=== PATIENT | female | born 1990 | race African-American/Black ===

== ENCOUNTER 2022-08-09 23:54 | Inpatient (IN) | payer SELFPAY ==
--- OUTSIDE RECORDS SUMMARY | 2022-08-10 | XMS REPORT | Continuity of Care Document ---
:1990 Author Organization [facility] t Address [address] [place] [address] Care Team Providers Name Role Phone BRENTON Attending Clinician Unavailable G_Femi Attending Clinician Unavailable BRENTON Admitting Clinician Unavailable Lula Admitting Clinician Unavailable Payers Payer Name Policy Type Policy Number Effective Date Expiration Date [facility] [id number] 2019 CHOICE (MEDICAID 00:00:00 REPLACEMENT - O) Problems Condition Condition Condition Status Onset Resolution Last Treating Co mments Source Name Details Category Date Date Treatment Clinician Date Essential Essential Problem Active [facility] hypertensi Hypertensi 9-05 da on on 00:00: Medical 00 Group Pre-eclamp Pre-eclamp Problem Active [facility] jarred jarred 9-05 da 00:00: Medical 00 Group Problem Active 2018- M [facility] depression Depression 9-05 da 00:00: Medical 00 Group Pre-eclamp Pre-eclamp Problem Active 2018- M [facility] jarred or jarred or 8-12 da eclampsia Eclampsia 00:00: Medi safia with with 00 Group pre-existi Pre-existi ng ng hypertensi Hypertensi on - not on - Not delivered Delivered Uterine Uterine Problem Active [facility] scar from Scar from 5-24 da previous Previous 00:00: Medica l surgery in Surgery in 00 Gr oup , , childbirth Childbirth and the and the puerperium Puerperium with with problem Problem Chronic Chronic Problem Active [facility] hypertensi Hypertensi 02-10 da on on 00:00: Medical complicati Complicati 00 Gr oup ng AND/OR ng AND/OR reason for Reason for care Care during During History of History of Problem Active [facility] stillbirth Stillbirth 02-09 00:00: Medical 00 Group Late entry Late Entry Problem Active M [facility] into into 02-09 da 00:00: Medica l care Care 00 Group History of History of Problem Active M [facility] severe Severe da pre-eclamp Pre-eclamp Me dical jarred jarred Group Persistent Persistent Problem Active M [facility] proteinuri Proteinuri da a [facility] Allergies, Adverse Reactions, Alerts This patient has no known allergies or adverse reactions. Social History Smoking Status Start Date Stop Date Source Never Smoker [facility] Medications Ordered Filled Start Stop Current Ordering Indication Dosage Frequency Signature Comments Components Source Medication Medication Date Date Medication? Clinician (SIG) Name Name acetaminoph acetaminoph No acetaminop [facility] en 300 en 300 hen 300 da mg-codeine mg-codeine mg-codeine Medical 30 mg 30 mg 30 mg Group tablet 1-2 tablet 1-2 tablet 1-2 p.o. q 6 p.o. q 6 p.o. q 6 hrs PRN hrs PRN hrs PRN pain pain pain Aspirin Low Aspirin Low No 1 Q1D Aspirin [facility] Dose 81 mg Dose 81 mg Low Dose da tablet,maryann tablet,maryann 81 mg Medical yed release yed release tablet,del Group Take 1 Take 1 ayed tablet tablet release every day every day Take 1 by oral by oral tablet route. route. every day by oral route. citalopram citalopram No 1 Q1D citalopram [facility] 20 mg 20 mg 20 mg da tablet Take tablet Take tablet Medical 1 tablet 1 tablet Take 1 Group every day every day tablet by oral by oral every day route. route. by oral route. clonidine clonidine No 1 TID clonidine [facility] HCl 0.2 mg HCl 0.2 mg HCl 0.2 mg da tablet Take tablet Take tablet Medical 1 tablet 3 1 tablet 3 Take 1 G roup times a day times a day tablet 3 by oral by oral times a route. route. day by oral route. ferrous ferrous No 1 Q1D ferrous [facility] gluconate gluconate gluconate da 240 mg (27 240 mg (27 240 mg (27 Medical mg iron) mg iron) mg iron) Barbara up tablet Take tablet Take tablet 1 tablet 1 tablet Take 1 every day every day tablet by oral by oral every day route. route. by oral route. Fish Oil Fish Oil No 1capsul Q1D Fish Oil [facility] 1,000 mg 1,000 mg e(s) 1,000 mg da (120 mg-180 (120 mg-180 (120 M edical mg) capsule mg) capsule mg-180 mg) Group Take 1 Take 1 capsule capsule capsule Take 1 every day every day capsule by oral by oral every day route. route. by oral route. hydrochloro hydrochloro No 1 Q1D hydrochlor [facility] thiazide 25 thiazide 25 othiazide da mg tablet mg tablet 25 mg Medi safia Take 1 Take 1 tablet Group tablet tablet Take 1 every day every day tablet by oral by oral every day route. route. by oral route. ibuprofen ibuprofen No ibuprofen [facility] 800 mg 800 mg 800 mg da tablet tablet tablet Medical Group nifedipine nifedipine No nifedipine [facility] ER 60 mg ER 60 mg ER 60 mg da tablet,exte tablet,exte tablet,ext Medical nded nded ended Group release 24 release 24 release 24 hr Take 1 hr Take 1 hr Take 1 tablet tablet tablet every day every day every day by oral by oral by oral route. route. route. nifedipine nifedipine No nifedipine [facility] ER 90 mg ER 90 mg ER 90 mg da tablet,exte tablet,exte tablet,ext Medical nded nded ended Group release 24 release 24 release 24 hr Take 1 hr Take 1 hr Take 1 tablet tablet tablet every day every day every day by oral by oral by oral route. route. route. No [facility] Vitamin Vitamin Vitamin da Medical Group Vitafol-One Vitafol-One No Vitafol-On [facility] 29 mg 29 mg e 29 mg da iron-1 iron-1 iron-1 Medical mg-200 mg mg-200 mg mg-200 mg Group capsule capsule capsule Take 1 Take 1 Take 1 capsule capsule capsule every day every day every day by oral by oral by oral route at route at route at bedtime. bedtime. bedtime. Vital Signs Vital Name Observation Time Observation Value Comments Source BP Diastolic 2019-05-25 00:00:00 132 mm[Hg] [facility] Height 2019-05-25 00:00:00 61 [in_i] [facility] BMI (Body Mass 2019-05-25 00:00:00 29.6 kg/m2 [facility] Medical Index) Group BP Systolic 2019-05-25 00:00:00 196 mm[Hg] [facility] Body Weight 2019-05-25 00:00:00 156.4 [lb_av] [facility] BP Diastolic 2019-05-04 00:00:00 114 mm[Hg] [facility] Height 2019-05-04 00:00:00 61 [in_i] [facility] BMI (Body Mass 2019-05-04 00:00:00 31.9 kg/m2 [facility] Medical Index) Group BP Systolic 2019-05-04 00:00:00 163 mm[Hg] [facility] Body Weight 2019-05-04 00:00:00 168.7 [lb_av] [facility] BP Diastolic 2019-05-01 00:00:00 102 mm[Hg] [facility] Height 2019-05-01 00:00:00 61 [in_i] [facility] BMI (Body Mass 2019-05-01 00:00:00 32.5 kg/m2 [facility] Medical Index) Group BP Systolic 2019-05-01 00:00:00 155 mm[Hg] [facility] Body Weight 2019-05-01 00:00:00 172.1 [lb_av] [facility] BP Diastolic 2019-04-28 00:00:00 74 mm[Hg] [facility] Height 2019-04-28 00:00:00 61 [in_i] [facility] BP Systolic 2019-04-28 00:00:00 124 mm[Hg] [facility] BP Diastolic 2019-04-24 00:00:00 97 mm[Hg] [facility] Height 2019-04-24 00:00:00 61 [in_i] [facility] BMI (Body Mass 2019-04-24 00:00:00 32.1 kg/m2 [facility] Medical Index) Group BP Systolic 2019-04-24 00:00:00 139 mm[Hg] [facility] Body Weight 2019-04-24 00:00:00 170.1 [lb_av] [facility] BP Diastolic 2019-04-17 00:00:00 109 mm[Hg] [facility] Height 2019-04-17 00:00:00 61 [in_i] [facility] BMI (Body Mass 2019-04-17 00:00:00 31.4 kg/m2 [facility] stri[facility] apprent[facility] Medical Index) Group BP Systolic 2019-04-17 00:00:00 157 mm[Hg] [facility] Body Weight 2019-04-17 00:00:00 166.3 [lb_av] [facility] BP Diastolic 2019-04-10 00:00:00 95 mm[Hg] [facility] Height 2019-04-10 00:00:00 61 [in_i] [facility] BMI (Body Mass 2019-04-10 00:00:00 31[facility]4 [facility] BP Systolic 2019-04-10 00:00:00 151 mm[Hg] [facility] Body Weight 2019-04-10 00:00:00 166.3 [lb_av] [facility] BP Diastolic 2019-04-03 00:00:00 87 mm[Hg] [facility] Height 2019-04-03 00:00:00 61 [in_i] [facility] BMI (Body Mass 2019-04-03 00:00:00 31.7 kg/m2 [facility] apprent[facility] Medical Index) Group BP Systolic 2019-04-03 00:00:00 123 mm[Hg] [facility] Body Weight 2019-04-03 00:00:00 168 [lb_av] [facility] BP Diastolic 2019-03-22 00:00:00 95 mm[Hg] [facility] Height 2019-03-22 00:00:00 61 [in_i] [facility] BMI (Body Mass 2019-03-22 00:00:00 31[facility]4 [facility] BP Systolic 2019-03-22 00:00:00 149 mm[Hg] [facility] Body Weight 2019-03-22 00:00:00 166.2 [lb_av] [facility] BP Diastolic 2019-03-17 00:00:00 90 mm[Hg] [facility] Height 2019-03-17 00:00:00 61 [in_i] [facility] BMI (Body Mass 2019-03-17 00:00:00 31.2 [facility] BP Systolic 2019-03-17 00:00:00 148 mm[Hg] [facility] Body Weight 2019-03-17 00:00:00 165 [lb_av] [facility] BP Diastolic 2019-02-24 00:00:00 99 mm[Hg] [facility] Height 2019-02-24 00:00:00 61 [in_i] [facility] BMI (Body Mass 2019-02-24 00:00:00 30.3 kg/m2 [facility] stri[facility] apprentice Medical Index) Group BP Systolic 2019-02-24 00:00:00 153 mm[Hg] [facility] Body Weight 2019-02-24 00:00:00 160.2 [lb_av] [facility] BP Diastolic 2019-02-10 00:00:00 109 mm[Hg] [facility] Height 2019-02-10 00:00:00 61 [in_i] [facility] BMI (Body Mass 2019-02-10 00:00:00 30.4 [facility]m2 [facility] Group BP Systolic 2019-02-10 00:00:00 146 mm[Hg] [facility] Body Weight 2019-02-10 00:00:00 161 [lb_av] [facility] BP Diastolic 2019-02-09 00:00:00 102 mm[Hg] [facility] BP Systolic 2019-02-09 00:00:00 158 mm[Hg] [facility] Body Weight 2019-02-09 00:00:00 158 [lb_av] [facility] Procedures Procedure Date / Time Performed Performing Clinician Sour e US(FBP)W/0 NON STRESS 2019-05-04 00:00:00 [facility] US(FBP)W/0 NON STRESS 2019-05-01 00:00:00 [facility] non-stress test 2019-04-28 00:00:00 [facility] US(FBP)W/0 NON STRESS 2019-04-28 00:00:00 [facility] US, obstetric, limited 2019-04-28 00:00:00 [facility] non-stress test 2019-04-24 00:00:00 [facility] US(FBP)W/0 NON STRESS 2019-04-24 00:00:00 [facility] US, obstetric, limited 2019-04-17 00:00:00 [facility] US(FBP)W/0 NON STRESS 2019-04-17 00:00:00 [facility] TEST [facility] US(FBP)W/0 NON STRESS 2019-04-10 00:00:00 [facility] non-stress test 2019-04-03 00:00:00 [facility] US(FBP)W/0 NON STRESS 2019-04-03 00:00:00 [facility] ULTRASOUND REPEAT 2019-03-17 00:00:00 [facility] US, obstetric, limited 2019-02-10 00:00:00 [facility] Caesarean Section [facility] Plan of Care Planned Activity Planned Date Details Comments Source Diagnostic Test 2019-05-25 urinalysis, [facility] Pending 00:00:00 dipstick [code = Group urinalysis, dipstick] Encounters Start End Encounter Admission Attending Care Care Encounter Source Date/Time Date/Time Type Type Clinicians Facility Department ID 2022-01-08 2022-01-08 Outpatient DANE LEHMAN [facility] [id number] [facility] 03:56:00 03:56:00 [id number] 2020-10-24 2020-10-24 Outpatient LISTER_MELI DCANTOINETTE [facility] [id number] [facility] 09:58:00 09:58:00 [facility] [id number] [facility] 2020-08-07 2020-08-07 [id number] 02:18:00 02:18:00 [id number] da [facility] 2019-05-25 2019-05-25 Long [place] - [id number] M [facility] 00:00:00 00:00:00 Discovery monica Kahn MD: [address] [place] [phone] , Ph. [phone] 2019-05-04 2019-05-04 Long [place] - [id number] M [facility] 00:00:00 00:00:00 Discovery monica Kahn MD: [address] [place] [phone] , Ph. [phone] 2019-05-01 2019-05-01 [place] - [id number] M [facility] 00:00:00 00:00:00 Discovery monica Kahn MD: [address] [place] [phone] , Ph. [phone] 2019-04-28 2019-04-28 Mayra [place] - [id number] [facility] 00:00:00 00:00:00 Jasbir [facility] Medic[facility] booth MD: [address] [place] [phone] , Ph. [phone] 2019-04-24 2019-04-24 Mayra [place] - [id number] [facility] 00:00:00 00:00:00 J[facility] Medic[facility]ira booth MD: [address] [place] [phone] , Ph. [phone] 2019-04-17 2019-04-17 Long [place] - [id number] M [facility] 00:00:00 00:00:00 Discovery monica Kahn MD: [address] [place] [phone] , Ph. [phone] 2019-04-10 2019-04-10 [place] - [id number] M [facility] 00:00:00 00:00:00 Discovery monica Kahn MD: [address] [place] [phone] , Ph. [phone] 2019-04-03 2019-04-03 Mayra [place] - [id number] M [facility] 00:00:00 00:00:00 Jasbir Oneill, Medical Medica emmy MD: [address] [place] [phone] , Ph. [phone] 2019-03-22 2019-03-22 [place] - [id number] M [facility] 00:00:00 00:00:00 Discovery monica Kahn MD: [address] [place] [phone] , Ph. [phone] 2019-03-17 2019-03-17 [place] - [id number] M [facility] 00:00:00 00:00:00 Discovery monica Kahn MD: [address] [place] [phone] , Ph. [phone] 2019-02-24 2019-02-24 [place] - [id number] M [facility] 00:00:00 00:00:00 Discovery monica Kahn MD: [address] [place] [phone] , Ph. [phone] 2019-02-10 2019-02-10 [place] - [id number] M [facility] 00:00:00 00:00:00 Discovery monica Kahn MD: [address] [place], [place] [address]a - [address], [place] [address] , Ph. [phone] 2019-02-09 2019-02-09 Mayra [facility] [place] - [id number] M janice 00:00:00 00:00:00 Jasbir One[facility] Medica emmy GONG: [address] [facility], [place] [address] , Ph. [phone] Results Test Description Test Time Test Comments Results Result Comments Source Urinalysis macro (dipstick) panel - Urine 2019-05-25 11:18:3 3 Test Item Value Reference Range Interpretation Comme nts Leukocytes (test code = Leukocytes) Small Nitrite (test code = Nitrite) negative Urobilinogen (test code = Urobilinogen) .2 Protein (test code = Protein) 100 pH (test code = pH) 6.0 Blood (test code = Blood) Large Specific [place] (test code = Specific [place]) 1.025 Ketone (test code = Ketone) Negative Bilirubin (test code = Bilirubin) Negative Glucose (test code = Glucose) Negative Appearance (test code = Appearance) Clear Color (test code = Color) Yellow [facility] Biophysical profile panel [id number] 09:11:12 Test Item Value Reference Range Interpretation Comments Amniotic Fluid Index (test code = 2 (14.3) Amniotic Fluid Index) Tone (test code = Tone) 2 Breathing (test code = 2 Breathing) Movement (test code = 2 Movement) Non-Stress Test (test code = 2 Non-Stress Test) [facility] Biophysical profile panel [id number] 09:11:12 Test Item Value Reference Range Interpretation Comments Amniotic Fluid Index (test code = 2 (14.3) Amniotic Fluid Index) Tone (test code = Tone) 2 Breathing (test code = 2 Breathing) Movement (test code = 2 Movement) Non-Stress Test (test code = 2 Non-Stress Test) [facility] Biophysical profile panel [id number] 09:11:12 Test Item Value Reference Range Interpretation Comments Amniotic Fluid Index (test code = 2 (14.3) Amniotic Fluid Index) Tone (test code = Tone) 2 Breathing (test code = 2 Breathing) Movement (test code = 2 Movement) Non-Stress Test (test code = 2 Non-Stress Test) [facility] W Auto Differential panel - [id number] 09:04:00 Test Item Value Reference Range Interpretation Comments white blood count (test code = 18.8 K/uL 4.0-11.5 white blood count) red blood count (test code = red 4.14 M/uL 3.80-5.20 blood count) hemoglobin (test code = 10.4 g/dL 10.5-15.7 L hemoglobin) hematocrit (test code = 34.6 % 34.0-50.0 hematocrit) Erythrocyte mean corpuscular 83.6 fL 86-100 L volume [Entitic volume] (test code = 39250-7) mean corpuscular hemoglobin (test 25.1 pg 26.2-33.4 L code = mean corpuscular hemoglobin) mean corpuscular HGB conc (test 30.1 g/dL 30-34 code = mean corpuscular HGB conc) red cell distribution width (test 13.0 % 12.0-15.5 code = red cell distribution width) platelet count (test code = 147 K/uL 165-450 L platelet count) ipf# (test code = ipf#) 20.0 ipf% (test code = ipf%) 13.6 % 0-8 H mean platelet volume (test code = 13.3 fL 9.4-12.6 H mean platelet volume) Neutrophils.segmented/100 80.0 % 44.4-80.1 leukocytes in Blood (test code = 27313-9) Ig% (test code = Ig%) 1.1 % 0.0-0.4 H lymphocyte% (test code = 10.7 % 10.0-50.0 lymphocyte%) mono % (test code = mono %) 7.9 % 3.6-12.0 eos % (test code = eos %) 0.1 % 0.0-5.4 Basophils/100 leukocytes in 0.2 % 0.1-1.2 Unspecified specimen (test code = 15523-6) absolute neutrophil count (test 15.05 K/uL 1.56-6.13 H code = absolute neutrophil count) Ig# (test code = Ig#) 0.2 K/uL 0.0-0.03 H Lymphocytes [#/volume] in 2.0 K/uL 1.18-3.74 Unspecified specimen by Automated count (test code = 87295-7) mono # (test code = mono #) 1.49 K/uL 0.24-0.86 H eos # (test code = eos #) 0.02 K/uL 0.04-0.36 L basophil # (test code = basophil 0.04 K/uL 0.01-0.08 #) NRBC% (test code = NRBC%) 0 /100 WBC 0-0.2 NRBC# (test code = NRBC#) 0 K/uL [facility] W Auto Differential panel - [id number] 08:43:00 Test Item Value Reference Range Interpretation Comments white blood count (test code = 15.5 K/uL 4.0-11.5 white blood count) red blood count (test code = red 4.41 M/uL 3.80-5.20 blood count) hemoglobin (test code = 11.2 g/dL 10.5-15.7 hemoglobin) hematocrit (test code = 37.1 % 34.0-50.0 hematocrit) Erythrocyte mean corpuscular 84.1 fL 86-100 L volume [Entitic volume] (test code = 73000-6) mean corpuscular hemoglobin (test 25.4 pg 26.2-33.4 L code = mean corpuscular hemoglobin) mean corpuscular HGB conc (test 30.2 g/dL 30-34 code = mean corpuscular HGB conc) red cell distribution width (test 13.2 % 12.0-15.5 code = red cell distribution width) platelet count (test code = 177 K/uL 165-450 platelet count) mean platelet volume (test code = 13.5 fL 9.4-12.6 H mean platelet volume) Neutrophils.segmented/100 65.1 % 44.4-80.1 leukocytes in Blood (test code = 37042-3) Ig% (test code = Ig%) 2.5 % 0.0-0.4 H lymphocyte% (test code = 20.9 % 10.0-50.0 lymphocyte%) mono % (test code = mono %) 10.1 % 3.6-12.0 eos % (test code = eos %) 0.9 % 0.0-5.4 Basophils/100 leukocytes in 0.5 % 0.1-1.2 Unspecified specimen (test code = 87139-2) absolute neutrophil count (test 10.10 K/uL 1.56-6.13 H code = absolute neutrophil count) Ig# (test code = Ig#) 0.4 K/uL 0.0-0.03 H Lymphocytes [#/volume] in 3.2 K/uL 1.18-3.74 Unspecified specimen by Automated count (test code = 94229-9) mono # (test code = mono #) 1.56 K/uL 0.24-0.86 H eos # (test code = eos #) 0.14 K/uL 0.04-0.36 basophil # (test code = basophil 0.07 K/uL 0.01-0.08 #) NRBC% (test code = NRBC%) 0 /100 WBC 0-0.2 NRBC# (test code = NRBC#) 0 K/uL [facility] - Blood 2019-05-04 08:43:00 Test Item Value Reference Range Interpretation Comments Rh [Type] in Blood (test code = 3+ 37351-4) ABO and Rh group panel - Blood O positive (test code = 16989-5) [facility] [Presence] in Serum by [id number] 08:43:00 Test Item Value Reference Range Interpretation Comments Reagin Ab [Presence] in Serum by nonreactive nonreactive RPR (test code = 08742-2) [facility] surface Ag [Presence] in Serum 2019-05-04 08:43:00 Test Item Value Reference Range Interpretation Comments .hepatitis B surface antigen (test negative negative code = .hepatitis B surface antigen) [facility] in 24 [id number] 00:00:00 Test Item Value Reference Range Interpretation Comments creatinine (test code = 0.6 mg/dL 0.50-0.90 creatinine) urine collection time (test 24 hours code = urine collection time) Volume of Urine (test code = 3500 mL/24 [place] 44858-6) creatinine, urine random (test 44.3 mg/dL 217 code = creatinine, urine random) Creatinine renal clearance in 179.5 mL/min 88-128 H unspecified time (test code = 78371-3) [facility] in 24 hour [id number] 00:00:00 Test Item Value Reference Range Interpretation Comments urine total protein (test code = 25.4 mg/dL urine total protein) total protein 24 hour urine 889.0 mg/day <149.1 (test code = total protein 24 hour urine) [facility] in 24 [id number] 00:00:00 Test Item Value Reference Range Interpretation Comments creatinine (test code = 0.6 mg/dL 0.50-0.90 creatinine) urine collection time (test 24 hours code = urine collection time) Volume of Urine (test code = 3500 mL/24 [place] 405[address]-8) creatinine, urine random (test 44.3 mg/dL 217 code = creatinine, urine random) Creatinine renal clearance in 179.5 mL/min 88-128 H unspecified time (test code = 50542-2) [facility]Mass/[facility]] in 24 hour [id number] 00:00:00 Test Item Value Reference Range Interpretation Comments urine total protein (test code = 25.4 mg/dL urine total protein) total protein 24 hour urine 889.0 mg/day <149.1 (test code = total protein 24 hour urine) [facility] in 24 [id number] 00:00:00 Test Item Value Reference Range Interpretation Comments creatinine (test code = 0.6 mg/dL 0.50-0.90 creatinine) urine collection time (test 24 hours code = urine collection time) Volume of Urine (test code = 3500 mL/24 HR 03231-2) creatinine, urine random (test 44.3 mg/dL 217 code = creatinine, urine random) Creatinine renal clearance in 179.5 mL/min 88-128 H unspecified time (test code = 27147-9) [facility]] in 24 hour [id number] 00:00:00 Test Item Value Reference Range Interpretation Comments urine total protein (test code = 25.4 mg/dL urine total protein) total protein 24 hour urine 889.0 mg/day <149.1 (test code = total protein 24 hour urine) [facility] Biophysical profile panel [id number] 09:50:08 Test Item Value Reference Range Interpretation Comments Amniotic Fluid Index (test code = 2 (16.6) Amniotic Fluid Index) Tone (test code = Tone) 2 Breathing (test code = 2 Breathing) Movement (test code = 2 Movement) Non-Stress Test (test code = 2 Non-Stress Test) [facility] Biophysical profile panel [id number] 09:50:08 Test Item Value Reference Range Interpretation Comments Amniotic Fluid Index (test code = 2 (16.6) Amniotic Fluid Index) Tone (test code = Tone) 2 Breathing (test code = 2 Breathing) Movement (test code = 2 Movement) Non-Stress Test (test code = 2 Non-Stress Test) [facility] Biophysical profile panel [id number] 09:50:08 Test Item Value Reference Range Interpretation Comments Amniotic Fluid Index (test code = 2 (16.6) Amniotic Fluid Index) Tone (test code = Tone) 2 Breathing (test code = 2 Breathing) Movement (test code = 2 Movement) Non-Stress Test (test code = 2 Non-Stress Test) [facility] Biophysical profile panel [id number] 09:50:08 Test Item Value Reference Range Interpretation Comments Amniotic Fluid Index (test code = 2 (16.6) Amniotic Fluid Index) Tone (test code = Tone) 2 Breathing (test code = 2 Breathing) Movement (test code = 2 Movement) Non-Stress Test (test code = 2 Non-Stress Test) [facility] W Auto Differential panel - [id number] 00:00:00 Test Item Value Reference Range Interpretation Comments white blood count (test code = 8.7 K/uL 4.0-11.5 white blood count) red blood count (test code = red 4.29 M/uL 3.80-5.20 blood count) hemoglobin (test code = 10.8 g/dL 10.5-15.7 hemoglobin) hematocrit (test code = 35.8 % 34.0-50.0 hematocrit) Erythrocyte mean corpuscular 83.4 fL 86-100 L volume [Entitic volume] (test code = 03800-4) mean corpuscular hemoglobin (test 25.2 pg 26.2-33.4 L code = mean corpuscular hemoglobin) mean corpuscular HGB conc (test 30.2 g/dL 30-34 code = mean corpuscular HGB conc) red cell distribution width (test 13.0 % 12.0-15.5 code = red cell distribution width) platelet count (test code = 156 K/uL 165-450 L platelet count) mean platelet volume (test code = 13.1 fL 9.4-12.6 H mean platelet volume) Neutrophils.segmented/100 66.6 % 44.4-80.1 leukocytes in Blood (test code = 59620-8) Ig% (test code = Ig%) 0.7 % 0.0-0.4 H lymphocyte% (test code = 24.7 % 10.0-50.0 lymphocyte%) mono % (test code = mono %) 7.0 % 3.6-12.0 eos % (test code = eos %) 0.7 % 0.0-5.4 Basophils/100 leukocytes in 0.3 % 0.1-1.2 Unspecified specimen (test code = 27678-6) absolute neutrophil count (test 5.82 K/uL 1.56-6.13 code = absolute neutrophil count) Ig# (test code = Ig#) 0.1 K/uL 0.0-0.03 H Lymphocytes [#/volume] in 2.2 K/uL 1.18-3.74 Unspecified specimen by Automated count (test code = 95083-7) mono # (test code = mono #) 0.61 K/uL 0.24-0.86 eos # (test code = eos #) 0.06 K/uL 0.04-0.36 basophil # (test code = basophil 0.03 K/uL 0.01-0.08 #) NRBC% (test code = NRBC%) 0 /100 WBC 0-0.2 NRBC# (test code = NRBC#) 0 K/uL [facility] - [facility] or Plasma 2019-05-01 00:00:00 Test Item Value Reference Range Interpretation Comments Glucose [Mass/volume] in Serum or 108 mg/dL 74-106 H Plasma (test code = 2345-7) Urea nitrogen [Mass/volume] in 6 mg/dL 6-20 Serum or Plasma (test code = 3094-0) osmolality calculated, serum (test 270 280-300 L code = osmolality calculated, serum) creatinine (test code = 0.6 mg/dL 0.50-0.90 creatinine) glomerular filtration rate (test >60.00 code = glomerular filtration rate) Urea nitrogen/Creatinine [Mass 10.0 12-20 L Ratio] in Serum or Plasma (test code = 3097-3) sodium level (test code = sodium 136 mmol/L 135-145 level) potassium level (test code = 3.7 mmol/L 3.5-5.2 potassium level) chloride level (test code = 104 mmol/L 98-108 chloride level) CO2 (test code = CO2) 21 mmol/L 21-32 anion gap (test code = anion gap) 14.7 mEq/L 12-20 calcium level (test code = calcium 9.5 mg/dL 8.6-10.0 level) total protein (test code = total 6.9 g/dL 6.6-8.7 protein) albumin (test code = albumin) 3.5 g/dL 3.5-5.2 globulin (test code = globulin) 3.4 gm/dL A/G ratio (test code = A/G ratio) 1.0 >1.0 bilirubin,total (test code = 0.4 mg/dL 0.0-1.2 bilirubin,total) AST/SGOT (test code = AST/SGOT) 12 U/L 15-32 L Alanine aminotransferase 7 U/L 0-33 [Enzymatic activity/volume] in Serum or Plasma (test code = 1742-6) Alkaline phosphatase [Enzymatic 223 U/L 35-105 H activity/volume] in Serum or Plasma (test code = 6768-6) [facility]] in [id number] 00:00:00 Test Item Value Reference Range Interpretation Comments uric acid (test code = uric acid) 5.4 mg/dL 2.4-5.7 [facility]-Lactate [Moles/volume] in Serum or [id number] 00:00:00 Test Item Value Reference Range Interpretation Comments LDH (test code = LDH) 146 U/L 135-214 [facility] W Auto Differential panel - [id number] 00:00:00 Test Item Value Reference Range Interpretation Comments white blood count (test code = 8.7 K/uL 4.0-11.5 white blood count) red blood count (test code = red 4.29 M/uL 3.80-5.20 blood count) hemoglobin (test code = 10.8 g/dL 10.5-15.7 hemoglobin) hematocrit (test code = 35.8 % 34.0-50.0 hematocrit) Erythrocyte mean corpuscular 83.4 fL 86-100 L volume [Entitic volume] (test code = 13842-4) mean corpuscular hemoglobin (test 25.2 pg 26.2-33.4 L code = mean corpuscular hemoglobin) mean corpuscular HGB conc (test 30.2 g/dL 30-34 code = mean corpuscular HGB conc) red cell distribution width (test 13.0 % 12.0-15.5 code = red cell distribution width) platelet count (test code = 156 K/uL 165-450 L platelet count) mean platelet volume (test code = 13.1 fL 9.4-12.6 H mean platelet volume) Neutrophils.segmented/100 66.6 % 44.4-80.1 leukocytes in Blood (test code = 79024-6) Ig% (test code = Ig%) 0.7 % 0.0-0.4 H lymphocyte% (test code = 24.7 % 10.0-50.0 lymphocyte%) mono % (test code = mono %) 7.0 % 3.6-12.0 eos % (test code = eos %) 0.7 % 0.0-5.4 Basophils/100 leukocytes in 0.3 % 0.1-1.2 Unspecified specimen (test code = 50328-6) absolute neutrophil count (test 5.82 K/uL 1.56-6.13 code = absolute neutrophil count) Ig# (test code = Ig#) 0.1 K/uL 0.0-0.03 H Lymphocytes [#/volume] in 2.2 K/uL 1.18-3.74 Unspecified specimen by Automated count (test code = 35229-5) mono # (test code = mono #) 0.61 K/uL 0.24-0.86 eos # (test code = eos #) 0.06 K/uL 0.04-0.36 basophil # (test code = basophil 0.03 K/uL 0.01-0.08 #) NRBC% (test code = NRBC%) 0 /100 WBC 0-0.2 NRBC# (test code = NRBC#) 0 K/uL [facility] - Serum or Plasma 2019-05-01 00:00:00 Test Item Value Reference Range Interpretation Comments Glucose [Mass/volume] in Serum or 108 mg/dL 74-106 H Plasma (test code = 2345-7) Urea nitrogen [Mass/volume] in 6 mg/dL 6-20 Serum or Plasma (test code = 3094-0) osmolality calculated, serum (test 270 280-300 L code = osmolality calculated, serum) creatinine (test code = 0.6 mg/dL 0.50-0.90 creatinine) glomerular filtration rate (test >60.00 code = glomerular filtration rate) Urea nitrogen/Creatinine [Mass 10.0 12-20 L Ratio] in Serum or Plasma (test code = 3097-3) sodium level (test code = sodium 136 mmol/L 135-145 level) potassium level (test code = 3.7 mmol/L 3.5-5.2 potassium level) chloride level (test code = 104 mmol/L 98-108 chloride level) CO2 (test code = CO2) 21 mmol/L 21-32 anion gap (test code = anion gap) 14.7 mEq/L 12-20 calcium level (test code = calcium 9.5 mg/dL 8.6-10.0 level) total protein (test code = total 6.9 g/dL 6.6-8.7 protein) albumin (test code = albumin) 3.5 g/dL 3.5-5.2 globulin (test code = globulin) 3.4 gm/dL A/G ratio (test code = A/G ratio) 1.0 >1.0 bilirubin,total (test code = 0.4 mg/dL 0.0-1.2 bilirubin,total) AST/SGOT (test code = AST/SGOT) 12 U/L 15-32 L Alanine aminotransferase 7 U/L 0-33 [Enzymatic activity/volume] in Serum or Plasma (test code = 1742-6) Alkaline phosphatase [Enzymatic 223 U/L 35-105 H activity/volume] in Serum or Plasma (test code = 6768-6) [facility] [[facility]] in [id number] 00:00:00 Test Item Value Reference Range Interpretation Comments uric acid (test code = uric acid) 5.4 mg/dL 2.4-5.7 [facility]-Lactate [Moles/volume] in Serum or [id number] 00:00:00 Test Item Value Reference Range Interpretation Comments LDH (test code = LDH) 146 U/L 135-214 [facility] W Auto Differential panel - [id number] 00:00:00 Test Item Value Reference Range Interpretation Comments white blood count (test code = 8.7 K/uL 4.0-11.5 white blood count) red blood count (test code = red 4.29 M/uL 3.80-5.20 blood count) hemoglobin (test code = 10.8 g/dL 10.5-15.7 hemoglobin) hematocrit (test code = 35.8 % 34.0-50.0 hematocrit) Erythrocyte mean corpuscular 83.4 fL 86-100 L volume [Entitic volume] (test code = 10476-3) mean corpuscular hemoglobin (test 25.2 pg 26.2-33.4 L code = mean corpuscular hemoglobin) mean corpuscular HGB conc (test 30.2 g/dL 30-34 code = mean corpuscular HGB conc) red cell distribution width (test 13.0 % 12.0-15.5 code = red cell distribution width) platelet count (test code = 156 K/uL 165-450 L platelet count) mean platelet volume (test code = 13.1 fL 9.4-12.6 H mean platelet volume) Neutrophils.segmented/100 66.6 % 44.4-80.1 leukocytes in Blood (test code = 78774-3) Ig% (test code = Ig%) 0.7 % 0.0-0.4 H lymphocyte% (test code = 24.7 % 10.0-50.0 lymphocyte%) mono % (test code = mono %) 7.0 % 3.6-12.0 eos % (test code = eos %) 0.7 % 0.0-5.4 Basophils/100 leukocytes in 0.3 % 0.1-1.2 Unspecified specimen (test code = 45672-7) absolute neutrophil count (test 5.82 K/uL 1.56-6.13 code = absolute neutrophil count) Ig# (test code = Ig#) 0.1 K/uL 0.0-0.03 H Lymphocytes [#/volume] in 2.2 K/uL 1.18-3.74 Unspecified specimen by Automated count (test code = 91395-4) mono # (test code = mono #) 0.61 K/uL 0.24-0.86 eos # (test code = eos #) 0.06 K/uL 0.04-0.36 basophil # (test code = basophil 0.03 K/uL 0.01-0.08 #) NRBC% (test code = NRBC%) 0 /100 WBC 0-0.2 NRBC# (test code = NRBC#) 0 K/uL [facility] - Serum or Plasma 2019-05-01 00:00:00 Test Item Value Reference Range Interpretation Comments Glucose [Mass/volume] in Serum or 108 mg/dL 74-106 H Plasma (test code = 2345-7) Urea nitrogen [Mass/volume] in 6 mg/dL 6-20 Serum or Plasma (test code = 3094-0) osmolality calculated, serum (test 270 280-300 L code = osmolality calculated, serum) creatinine (test code = 0.6 mg/dL 0.50-0.90 creatinine) glomerular filtration rate (test >60.00 code = glomerular filtration rate) Urea nitrogen/Creatinine [Mass 10.0 12-20 L Ratio] in Serum or Plasma (test code = 3097-3) sodium level (test code = sodium 136 mmol/L 135-145 level) potassium level (test code = 3.7 mmol/L 3.5-5.2 potassium level) chloride level (test code = 104 mmol/L 98-108 chloride level) CO2 (test code = CO2) 21 mmol/L 21-32 anion gap (test code = anion gap) 14.7 mEq/L 12-20 calcium level (test code = calcium 9.5 mg/dL 8.6-10.0 level) total protein (test code = total 6.9 g/dL 6.6-8.7 protein) albumin (test code = albumin) 3.5 g/dL 3.5-5.2 globulin (test code = globulin) 3.4 gm/dL A/G ratio (test code = A/G ratio) 1.0 >1.0 bilirubin,total (test code = 0.4 mg/dL 0.0-1.2 bilirubin,total) AST/SGOT (test code = AST/SGOT) 12 U/L 15-32 L Alanine aminotransferase 7 U/L 0-33 [Enzymatic activity/volume] in Serum or Plasma (test code = 1742-6) Alkaline phosphatase [Enzymatic 223 U/L 35-105 H activity/volume] in Serum or Plasma (test code = 6768-6) [facility] [[facility]] in [id number] 00:00:00 Test Item Value Reference Range Interpretation Comments uric acid (test code = uric acid) 5.4 mg/dL 2.4-5.7 [facility] [Moles/volume] in Serum or [id number] 00:00:00 Test Item Value Reference Range Interpretation Comments LDH (test code = LDH) 146 U/L 135-214 [facility] [id number] 16:48:00 Test Item Value Reference Range Interpretation Comments Reactive (test code = Reactive) No Contractions (test code = Contractions) No [facility] [id number] 16:48:00 Test Item Value Reference Range Interpretation Comments Reactive (test code = Reactive) No Contractions (test code = Contractions) No [facility] [id number] 16:48:00 Test Item Value Reference Range Interpretation Comments Reactive (test code = Reactive) No Contractions (test code = Contractions) No [facility] [id number] 16:48:00 Test Item Value Reference Range Interpretation Comments Reactive (test code = Reactive) No Contractions (test code = Contractions) No [facility] HospitalUrinalysis macro (dipstick) panel - [id number] 15:46:00 Test Item Value Reference Range Interpretation Comments Leukocytes (test code = Leukocytes) Negative Nitrite (test code = Nitrite) negative Urobilinogen (test code = .2 Urobilinogen) Protein (test code = Protein) 100 pH (test code = pH) 6.5 Blood (test code = Blood) Negative Specific [place] (test code = 1.025 Specific [place]) Ketone (test code = Ketone) Negative Bilirubin (test code = Bilirubin) Negative Glucose (test code = Glucose) Negative Appearance (test code = Appearance) Clear Color (test code = Color) Yellow [facility] Hospital[facility] macro (dipstick) panel - [id number] 15:46:00 Test Item Value Reference Range Interpretation Comments Leukocytes (test code = Leukocytes) Negative Nitrite (test code = Nitrite) negative Urobilinogen (test code = .2 Urobilinogen) Protein (test code = Protein) 100 pH (test code = pH) 6.5 Blood (test code = Blood) Negative Specific [place] (test code = 1.025 Specific [place]) Ketone (test code = Ketone) Negative Bilirubin (test code = Bilirubin) Negative Glucose (test code = Glucose) Negative Appearance (test code = Appearance) Clear Color (test code = Color) Yellow [facility] HospitalUr[facility]ysis macro (dipstick) panel - [id number] 15:46:00 Test Item Value Reference Range Interpretation Comments Leukocytes (test code = Leukocytes) Negative Nitrite (test code = Nitrite) negative Urobilinogen (test code = .2 Urobilinogen) Protein (test code = Protein) 100 pH (test code = pH) 6.5 Blood (test code = Blood) Negative Specific [place] (test code = 1.025 Specific [place]) Ketone (test code = Ketone) Negative Bilirubin (test code = Bilirubin) Negative Glucose (test code = Glucose) Negative Appearance (test code = Appearance) Clear Color (test code = Color) Yellow [facility] Group[facility] (dipstick) panel - [id number] 15:46:00 Test Item Value Reference Range Interpretation Comments Leukocytes (test code = Leukocytes) Negative Nitrite (test code = Nitrite) negative Urobilinogen (test code = .2 Urobilinogen) Protein (test code = Protein) 100 pH (test code = pH) 6.5 Blood (test code = Blood) Negative Specific [place] (test code = 1.025 Specific [place]) Ketone (test code = Ketone) Negative Bilirubin (test code = Bilirubin) Negative Glucose (test code = Glucose) Negative Appearance (test code = Appearance) Clear Color (test code = Color) Yellow [facility] [id number] 10:56:00 Test Item Value Reference Range Interpretation Comments Amniotic Fluid Index (test code = 2 (15.6) Amniotic Fluid Index) Tone (test code = Tone) 2 Breathing (test code = 2 Breathing) Movement (test code = 2 Movement) [facility] Biophysical profile panel [id number] 10:56:00 Test Item Value Reference Range Interpretation Comments Amniotic Fluid Index (test code = 2 (15.6) Amniotic Fluid Index) Tone (test code = Tone) 2 Breathing (test code = 2 Breathing) Movement (test code = 2 Movement) [facility] Biophysical profile panel [id number] 10:56:00 Test Item Value Reference Range Interpretation Comments Amniotic Fluid Index (test code = 2 (15.6) Amniotic Fluid Index) Tone (test code = Tone) 2 Breathing (test code = 2 Breathing) Movement (test code = 2 Movement) [facility] [id number] 10:56:00 Test Item Value Reference Range Interpretation Comments Amniotic Fluid Index (test code = 2 (15.6) Amniotic Fluid Index) Tone (test code = Tone) 2 Breathing (test code = 2 Breathing) Movement (test code = 2 Movement) [facility] (dipstick) panel - [id number] 16:14:00 Test Item Value Reference Range Interpretation Comments Leukocytes (test code = Negative Leukocytes) Nitrite (test code = Nitrite) negative Urobilinogen (test code = .2 Urobilinogen) Protein (test code = Protein) 100 pH (test code = pH) 6.5 Blood (test code = Blood) Negative Specific [place] (test code = 1.020 Specific [place]) Ketone (test code = Ketone) Negative Bilirubin (test code = Bilirubin) Negative Glucose (test code = Glucose) Negative Appearance (test code = Clear Appearance) Color (test code = Color) Dark Yellow [facility] macro (dipstick) panel - [id number] 16:14:00 Test Item Value Reference Range Interpretation Comments Leukocytes (test code = Negative Leukocytes) Nitrite (test code = Nitrite) negative Urobilinogen (test code = .2 Urobilinogen) Protein (test code = Protein) 100 pH (test code = pH) 6.5 Blood (test code = Blood) Negative Specific [place] (test code = 1.020 Specific [place]) Ketone (test code = Ketone) Negative Bilirubin (test code = Bilirubin) Negative Glucose (test code = Glucose) Negative Appearance (test code = Clear Appearance) Color (test code = Color) Dark Yellow [facility] macro (dipstick) panel - [id number] 16:14:00 Test Item Value Reference Range Interpretation Comments Leukocytes (test code = Negative Leukocytes) Nitrite (test code = Nitrite) negative Urobilinogen (test code = .2 Urobilinogen) Protein (test code = Protein) 100 pH (test code = pH) 6.5 Blood (test code = Blood) Negative Specific [place] (test code = 1.020 Specific [place]) Ketone (test code = Ketone) Negative Bilirubin (test code = Bilirubin) Negative Glucose (test code = Glucose) Negative Appearance (test code = Clear Appearance) Color (test code = Color) Dark Yellow [facility] macro (dipstick) panel - [id number] 16:14:00 Test Item Value Reference Range Interpretation Comments Leukocytes (test code = Negative Leukocytes) Nitrite (test code = Nitrite) negative Urobilinogen (test code = .2 Urobilinogen) Protein (test code = Protein) 100 pH (test code = pH) 6.5 Blood (test code = Blood) Negative Specific [place] (test code = 1.020 Specific [place]) Ketone (test code = Ketone) Negative Bilirubin (test code = Bilirubin) Negative Glucose (test code = Glucose) Negative Appearance (test code = Clear Appearance) Color (test code = Color) Dark Yellow [facility] Biophysical profile panel [id number] 15:47:27 Test Item Value Reference Range Interpretation Comments Amniotic Fluid Index (test code = 2 (15.5) Amniotic Fluid Index) Tone (test code = Tone) 2 Breathing (test code = 2 Breathing) Movement (test code = 2 Movement) Non-Stress Test (test code = 2 Non-Stress Test) [facility] Biophysical profile panel [id number] 15:47:27 Test Item Value Reference Range Interpretation Comments Amniotic Fluid Index (test code = 2 (15.5) Amniotic Fluid Index) Tone (test code = Tone) 2 Breathing (test code = 2 Breathing) Movement (test code = 2 Movement) Non-Stress Test (test code = 2 Non-Stress Test) [facility] Biophysical profile panel [id number] 15:47:27 Test Item Value Reference Range Interpretation Comments Amniotic Fluid Index (test code = 2 (15.5) Amniotic Fluid Index) Tone (test code = Tone) 2 Breathing (test code = 2 Breathing) Movement (test code = 2 Movement) Non-Stress Test (test code = 2 Non-Stress Test) [facility] Biophysical profile panel [id number] 15:47:27 Test Item Value Reference Range Interpretation Comments Amniotic Fluid Index (test code = 2 (15.5) Amniotic Fluid Index) Tone (test code = Tone) 2 Breathing (test code = 2 Breathing) Movement (test code = 2 Movement) Non-Stress Test (test code = 2 Non-Stress Test) [facility] Biophysical profile panel [id number] 15:47:27 Test Item Value Reference Range Interpretation Comments Amniotic Fluid Index (test code = 2 (15.5) Amniotic Fluid Index) Tone (test code = Tone) 2 Breathing (test code = 2 Breathing) Movement (test code = 2 Movement) Non-Stress Test (test code = 2 Non-Stress Test) [facility] Biophysical profile panel [id number] 15:47:27 Test Item Value Reference Range Interpretation Comments Amniotic Fluid Index (test code = 2 (15.5) Amniotic Fluid Index) Tone (test code = Tone) 2 Breathing (test code = 2 Breathing) Movement (test code = 2 Movement) Non-Stress Test (test code = 2 Non-Stress Test) [facility] W Auto Differential panel - [id number] 02:24:00 Test Item Value Reference Range Interpretation Comments white blood count (test code = 8.5 K/uL 4.0-11.5 white blood count) red blood count (test code = red 4.37 M/uL 3.80-5.20 blood count) hemoglobin (test code = 11.3 g/dL 10.5-15.7 hemoglobin) hematocrit (test code = 36.9 % 34.0-50.0 hematocrit) Erythrocyte mean corpuscular 84.4 fL 86-100 L volume [Entitic volume] (test code = 62343-0) mean corpuscular hemoglobin (test 25.9 pg 26.2-33.4 L code = mean corpuscular hemoglobin) mean corpuscular HGB conc (test 30.6 g/dL 30-34 code = mean corpuscular HGB conc) red cell distribution width (test 13.1 % 12.0-15.5 code = red cell distribution width) platelet count (test code = 172 K/uL 165-450 platelet count) mean platelet volume (test code = 12.9 fL 9.4-12.6 H mean platelet volume) Neutrophils.segmented/100 65.4 % 44.4-80.1 leukocytes in Blood (test code = 67821-3) Ig% (test code = Ig%) 0.7 % 0.0-0.4 H lymphocyte% (test code = 23.4 % 10.0-50.0 lymphocyte%) mono % (test code = mono %) 9.4 % 3.6-12.0 eos % (test code = eos %) 0.7 % 0.0-5.4 Basophils/100 leukocytes in 0.4 % 0.1-1.2 Unspecified specimen (test code = 04027-2) absolute neutrophil count (test 5.56 K/uL 1.56-6.13 code = absolute neutrophil count) Ig# (test code = Ig#) 0.1 K/uL 0.0-0.03 H Lymphocytes [#/volume] in 2.0 K/uL 1.18-3.74 Unspecified specimen by Automated count (test code = 39782-7) mono # (test code = mono #) 0.80 K/uL 0.24-0.86 eos # (test code = eos #) 0.06 K/uL 0.04-0.36 basophil # (test code = basophil 0.03 K/uL 0.01-0.08 #) NRBC% (test code = NRBC%) 0 /100 WBC 0-0.2 NRBC# (test code = NRBC#) 0 K/uL [facility], [id number] 02:24:00 NeutrophilsBandLymphocyteAtypical LymphMonocyteEosinophilBasophilPlatelet EstimatePlatelet MorphologyMaWalthall County [facility] HospitalComprehensive metabolic 2000 panel - Serum or [id number] 02:24:00 Test Item Value Reference Range Interpretation Comments Glucose [Mass/volume] in Serum or 95 mg/dL 74-106 Plasma (test code = 2345-7) Urea nitrogen [Mass/volume] in 7 mg/dL 6-20 Serum or Plasma (test code = 3094-0) osmolality calculated, serum (test 272 280-300 L code = osmolality calculated, serum) creatinine (test code = 0.6 mg/dL 0.50-0.90 creatinine) glomerular filtration rate (test >60.00 code = glomerular filtration rate) Urea nitrogen/Creatinine [Mass 11.7 12-20 L Ratio] in Serum or Plasma (test code = 3097-3) sodium level (test code = sodium 137 mmol/L 135-145 level) potassium level (test code = 4.1 mmol/L 3.5-5.2 potassium level) chloride level (test code = 103 mmol/L 98-108 chloride level) CO2 (test code = CO2) 23 mmol/L 21-32 anion gap (test code = anion gap) 15.1 mEq/L 12-20 calcium level (test code = calcium 9.2 mg/dL 8.6-10.0 level) total protein (test code = total 7.3 g/dL 6.6-8.7 protein) albumin (test code = albumin) 3.7 g/dL 3.5-5.2 globulin (test code = globulin) 3.6 gm/dL A/G ratio (test code = A/G ratio) 1.0 >1.0 bilirubin,total (test code = 0.6 mg/dL 0.0-1.2 bilirubin,total) AST/SGOT (test code = AST/SGOT) 15 U/L 15-32 Alanine aminotransferase 7 U/L 0-33 [Enzymatic activity/volume] in Serum or Plasma (test code = 1742-6) Alkaline phosphatase [Enzymatic 188 U/L 35-105 H activity/volume] in Serum or Plasma (test code = 6768-6) [facility] Hospital[facility] [Mass/volume] in [id number] 02:24:00 Test Item Value Reference Range Interpretation Comments uric acid (test code = uric acid) 5.4 mg/dL 2.4-5.7 [facility] W Auto Differential panel - [id number] 02:24:00 Test Item Value Reference Range Interpretation Comments white blood count (test code = 8.5 K/uL 4.0-11.5 white blood count) red blood count (test code = red 4.37 M/uL 3.80-5.20 blood count) hemoglobin (test code = 11.3 g/dL 10.5-15.7 hemoglobin) hematocrit (test code = 36.9 % 34.0-50.0 hematocrit) Erythrocyte mean corpuscular 84.4 fL 86-100 L volume [Entitic volume] (test code = 20445-1) mean corpuscular hemoglobin (test 25.9 pg 26.2-33.4 L code = mean corpuscular hemoglobin) mean corpuscular HGB conc (test 30.6 g/dL 30-34 code = mean corpuscular HGB conc) red cell distribution width (test 13.1 % 12.0-15.5 code = red cell distribution width) platelet count (test code = 172 K/uL 165-450 platelet count) mean platelet volume (test code = 12.9 fL 9.4-12.6 H mean platelet volume) Neutrophils.segmented/100 65.4 % 44.4-80.1 leukocytes in Blood (test code = 80991-7) Ig% (test code = Ig%) 0.7 % 0.0-0.4 H lymphocyte% (test code = 23.4 % 10.0-50.0 lymphocyte%) mono % (test code = mono %) 9.4 % 3.6-12.0 eos % (test code = eos %) 0.7 % 0.0-5.4 Basophils/100 leukocytes in 0.4 % 0.1-1.2 Unspecified specimen (test code = 12199-7) absolute neutrophil count (test 5.56 K/uL 1.56-6.13 code = absolute neutrophil count) Ig# (test code = Ig#) 0.1 K/uL 0.0-0.03 H Lymphocytes [#/volume] in 2.0 K/uL 1.18-3.74 Unspecified specimen by Automated count (test code = 37061-8) mono # (test code = mono #) 0.80 K/uL 0.24-0.86 eos # (test code = eos #) 0.06 K/uL 0.04-0.36 basophil # (test code = basophil 0.03 K/uL 0.01-0.08 #) NRBC% (test code = NRBC%) 0 /100 WBC 0-0.2 NRBC# (test code = NRBC#) 0 K/uL [facility], [id number] 02:24:00 NeutrophilsBandLymphocyteAtypical LymphMonocyteEosinophilBasophilPlatelet EstimatePlatelet MorphologyMaWalthall County General HospitalComprehensive metabolic 2000 panel - Serum or [id number] 02:24:00 Test Item Value Reference Range Interpretation Comments Glucose [Mass/volume] in Serum or 95 mg/dL 74-106 Plasma (test code = 2345-7) Urea nitrogen [Mass/volume] in 7 mg/dL 6-20 Serum or Plasma (test code = 3094-0) osmolality calculated, serum (test 272 280-300 L code = osmolality calculated, serum) creatinine (test code = 0.6 mg/dL 0.50-0.90 creatinine) glomerular filtration rate (test >60.00 code = glomerular filtration rate) Urea nitrogen/Creatinine [Mass 11.7 12-20 L Ratio] in Serum or Plasma (test code = 3097-3) sodium level (test code = sodium 137 mmol/L 135-145 level) potassium level (test code = 4.1 mmol/L 3.5-5.2 potassium level) chloride level (test code = 103 mmol/L 98-108 chloride level) CO2 (test code = CO2) 23 mmol/L 21-32 anion gap (test code = anion gap) 15.1 mEq/L 12-20 calcium level (test code = calcium 9.2 mg/dL 8.6-10.0 level) total protein (test code = total 7.3 g/dL 6.6-8.7 protein) albumin (test code = albumin) 3.7 g/dL 3.5-5.2 globulin (test code = globulin) 3.6 gm/dL A/G ratio (test code = A/G ratio) 1.0 >1.0 bilirubin,total (test code = 0.6 mg/dL 0.0-1.2 bilirubin,total) AST/SGOT (test code = AST/SGOT) 15 U/L 15-32 Alanine aminotransferase 7 U/L 0-33 [Enzymatic activity/volume] in Serum or Plasma (test code = 1742-6) Alkaline phosphatase [Enzymatic 188 U/L 35-105 H activity/volume] in Serum or Plasma (test code = 6768-6) [facility] HospitalUrate [Mass/volume] in [id number] 02:24:00 Test Item Value Reference Range Interpretation Comments uric acid (test code = uric acid) 5.4 mg/dL 2.4-5.7 [facility] W Auto Differential panel - [id number] 02:24:00 Test Item Value Reference Range Interpretation Comments white blood count (test code = 8.5 K/uL 4.0-11.5 white blood count) red blood count (test code = red 4.37 M/uL 3.80-5.20 blood count) hemoglobin (test code = 11.3 g/dL 10.5-15.7 hemoglobin) hematocrit (test code = 36.9 % 34.0-50.0 hematocrit) Erythrocyte mean corpuscular 84.4 fL 86-100 L volume [Entitic volume] (test code = 42114-2) mean corpuscular hemoglobin (test 25.9 pg 26.2-33.4 L code = mean corpuscular hemoglobin) mean corpuscular HGB conc (test 30.6 g/dL 30-34 code = mean corpuscular HGB conc) red cell distribution width (test 13.1 % 12.0-15.5 code = red cell distribution width) platelet count (test code = 172 K/uL 165-450 platelet count) mean platelet volume (test code = 12.9 fL 9.4-12.6 H mean platelet volume) Neutrophils.segmented/100 65.4 % 44.4-80.1 leukocytes in Blood (test code = 68729-5) Ig% (test code = Ig%) 0.7 % 0.0-0.4 H lymphocyte% (test code = 23.4 % 10.0-50.0 lymphocyte%) mono % (test code = mono %) 9.4 % 3.6-12.0 eos % (test code = eos %) 0.7 % 0.0-5.4 Basophils/100 leukocytes in 0.4 % 0.1-1.2 Unspecified specimen (test code = 69808-4) absolute neutrophil count (test 5.56 K/uL 1.56-6.13 code = absolute neutrophil count) Ig# (test code = Ig#) 0.1 K/uL 0.0-0.03 H Lymphocytes [#/volume] in 2.0 K/uL 1.18-3.74 Unspecified specimen by Automated count (test code = 52746-3) mono # (test code = mono #) 0.80 K/uL 0.24-0.86 eos # (test code = eos #) 0.06 K/uL 0.04-0.36 basophil # (test code = basophil 0.03 K/uL 0.01-0.08 #) NRBC% (test code = NRBC%) 0 /100 WBC 0-0.2 NRBC# (test code = NRBC#) 0 K/uL [facility], [id number] 02:24:00 NeutrophilsBandLymphocyteAtypical LymphMonocyteEosinophilBasophilPlatelet EstimatePlatelet MorphologyMaWalthall County General HospitalComprehensive metabolic 2000 panel - Serum or [id number] 02:24:00 Test Item Value Reference Range Interpretation Comments Glucose [Mass/volume] in Serum or 95 mg/dL 74-106 Plasma (test code = 2345-7) Urea nitrogen [Mass/volume] in 7 mg/dL 6-20 Serum or Plasma (test code = 3094-0) osmolality calculated, serum (test 272 280-300 L code = osmolality calculated, serum) creatinine (test code = 0.6 mg/dL 0.50-0.90 creatinine) glomerular filtration rate (test >60.00 code = glomerular filtration rate) Urea nitrogen/Creatinine [Mass 11.7 12-20 L Ratio] in Serum or Plasma (test code = 3097-3) sodium level (test code = sodium 137 mmol/L 135-145 level) potassium level (test code = 4.1 mmol/L 3.5-5.2 potassium level) chloride level (test code = 103 mmol/L 98-108 chloride level) CO2 (test code = CO2) 23 mmol/L 21-32 anion gap (test code = anion gap) 15.1 mEq/L 12-20 calcium level (test code = calcium 9.2 mg/dL 8.6-10.0 level) total protein (test code = total 7.3 g/dL 6.6-8.7 protein) albumin (test code = albumin) 3.7 g/dL 3.5-5.2 globulin (test code = globulin) 3.6 gm/dL A/G ratio (test code = A/G ratio) 1.0 >1.0 bilirubin,total (test code = 0.6 mg/dL 0.0-1.2 bilirubin,total) AST/SGOT (test code = AST/SGOT) 15 U/L 15-32 Alanine aminotransferase 7 U/L 0-33 [Enzymatic activity/volume] in Serum or Plasma (test code = 1742-6) Alkaline phosphatase [Enzymatic 188 U/L 35-105 H activity/volume] in Serum or Plasma (test code = 6768-6) [facility] HospitalUrate [Mass/volume] in [id number] 02:24:00 Test Item Value Reference Range Interpretation Comments uric acid (test code = uric acid) 5.4 mg/dL 2.4-5.7 [facility] W Auto Differential panel - [id number] 02:24:00 Test Item Value Reference Range Interpretation Comments white blood count (test code = 8.5 K/uL 4.0-11.5 white blood count) red blood count (test code = red 4.37 M/uL 3.80-5.20 blood count) hemoglobin (test code = 11.3 g/dL 10.5-15.7 hemoglobin) hematocrit (test code = 36.9 % 34.0-50.0 hematocrit) Erythrocyte mean corpuscular 84.4 fL 86-100 L volume [Entitic volume] (test code = 65453-0) mean corpuscular hemoglobin (test 25.9 pg 26.2-33.4 L code = mean corpuscular hemoglobin) mean corpuscular HGB conc (test 30.6 g/dL 30-34 code = mean corpuscular HGB conc) red cell distribution width (test 13.1 % 12.0-15.5 code = red cell distribution width) platelet count (test code = 172 K/uL 165-450 platelet count) mean platelet volume (test code = 12.9 fL 9.4-12.6 H mean platelet volume) Neutrophils.segmented/100 65.4 % 44.4-80.1 leukocytes in Blood (test code = 10793-3) Ig% (test code = Ig%) 0.7 % 0.0-0.4 H lymphocyte% (test code = 23.4 % 10.0-50.0 lymphocyte%) mono % (test code = mono %) 9.4 % 3.6-12.0 eos % (test code = eos %) 0.7 % 0.0-5.4 Basophils/100 leukocytes in 0.4 % 0.1-1.2 Unspecified specimen (test code = 81062-7) absolute neutrophil count (test 5.56 K/uL 1.56-6.13 code = absolute neutrophil count) Ig# (test code = Ig#) 0.1 K/uL 0.0-0.03 H Lymphocytes [#/volume] in 2.0 K/uL 1.18-3.74 Unspecified specimen by Automated count (test code = 86195-8) mono # (test code = mono #) 0.80 K/uL 0.24-0.86 eos # (test code = eos #) 0.06 K/uL 0.04-0.36 basophil # (test code = basophil 0.03 K/uL 0.01-0.08 #) NRBC% (test code = NRBC%) 0 /100 WBC 0-0.2 NRBC# (test code = NRBC#) 0 K/uL [facility]different[facility], [id number] 02:24:00 NeutrophilsBandLymphocyteAtypical LymphMonocyteEosinophilBasophilPlatelet EstimatePlatelet MorphologyMaWalthall County General HospitalComprehensive metabolic 2000 panel - Serum or [id number] 02:24:00 Test Item Value Reference Range Interpretation Comments Glucose [Mass/volume] in Serum or 95 mg/dL 74-106 Plasma (test code = 2345-7) Urea nitrogen [Mass/volume] in 7 mg/dL 6-20 Serum or Plasma (test code = 3094-0) osmolality calculated, serum (test 272 280-300 L code = osmolality calculated, serum) creatinine (test code = 0.6 mg/dL 0.50-0.90 creatinine) glomerular filtration rate (test >60.00 code = glomerular filtration rate) Urea nitrogen/Creatinine [Mass 11.7 12-20 L Ratio] in Serum or Plasma (test code = 3097-3) sodium level (test code = sodium 137 mmol/L 135-145 level) potassium level (test code = 4.1 mmol/L 3.5-5.2 potassium level) chloride level (test code = 103 mmol/L 98-108 chloride level) CO2 (test code = CO2) 23 mmol/L 21-32 anion gap (test code = anion gap) 15.1 mEq/L 12-20 calcium level (test code = calcium 9.2 mg/dL 8.6-10.0 level) total protein (test code = total 7.3 g/dL 6.6-8.7 protein) albumin (test code = albumin) 3.7 g/dL 3.5-5.2 globulin (test code = globulin) 3.6 gm/dL A/G ratio (test code = A/G ratio) 1.0 >1.0 bilirubin,total (test code = 0.6 mg/dL 0.0-1.2 bilirubin,total) AST/SGOT (test code = AST/SGOT) 15 U/L 15-32 Alanine aminotransferase 7 U/L 0-33 [Enzymatic activity/volume] in Serum or Plasma (test code = 1742-6) Alkaline phosphatase [Enzymatic 188 U/L 35-105 H activity/volume] in Serum or Plasma (test code = 6768-6) [facility] HospitalUrate [Mass/volume] in [id number] 02:24:00 Test Item Value Reference Range Interpretation Comments uric acid (test code = uric acid) 5.4 mg/dL 2.4-5.7 [facility] W Auto Differential panel - [id number] 02:24:00 Test Item Value Reference Range Interpretation Comments white blood count (test code = 8.5 K/uL 4.0-11.5 white blood count) red blood count (test code = red 4.37 M/uL 3.80-5.20 blood count) hemoglobin (test code = 11.3 g/dL 10.5-15.7 hemoglobin) hematocrit (test code = 36.9 % 34.0-50.0 hematocrit) Erythrocyte mean corpuscular 84.4 fL 86-100 L volume [Entitic volume] (test code = 52483-2) mean corpuscular hemoglobin (test 25.9 pg 26.2-33.4 L code = mean corpuscular hemoglobin) mean corpuscular HGB conc (test 30.6 g/dL 30-34 code = mean corpuscular HGB conc) red cell distribution width (test 13.1 % 12.0-15.5 code = red cell distribution width) platelet count (test code = 172 K/uL 165-450 platelet count) mean platelet volume (test code = 12.9 fL 9.4-12.6 H mean platelet volume) Neutrophils.segmented/100 65.4 % 44.4-80.1 leukocytes in Blood (test code = 62102-3) Ig% (test code = Ig%) 0.7 % 0.0-0.4 H lymphocyte% (test code = 23.4 % 10.0-50.0 lymphocyte%) mono % (test code = mono %) 9.4 % 3.6-12.0 eos % (test code = eos %) 0.7 % 0.0-5.4 Basophils/100 leukocytes in 0.4 % 0.1-1.2 Unspecified specimen (test code = 37165-5) absolute neutrophil count (test 5.56 K/uL 1.56-6.13 code = absolute neutrophil count) Ig# (test code = Ig#) 0.1 K/uL 0.0-0.03 H Lymphocytes [#/volume] in 2.0 K/uL 1.18-3.74 Unspecified specimen by Automated count (test code = 66889-9) mono # (test code = mono #) 0.80 K/uL 0.24-0.86 eos # (test code = eos #) 0.06 K/uL 0.04-0.36 basophil # (test code = basophil 0.03 K/uL 0.01-0.08 #) NRBC% (test code = NRBC%) 0 /100 WBC 0-0.2 NRBC# (test code = NRBC#) 0 K/uL [facility]different[facility], [id number] 02:24:00 NeutrophilsBandLymphocyteAtypical LymphMonocyteEosinophilBasophilPlatelet EstimatePlatelet MorphologyWhitfield Medical Surgical HospitalComprehensive metabolic 2000 panel - Serum or [id number] 02:24:00 Test Item Value Reference Range Interpretation Comments Glucose [Mass/volume] in Serum or 95 mg/dL 74-106 Plasma (test code = 2345-7) Urea nitrogen [Mass/volume] in 7 mg/dL 6-20 Serum or Plasma (test code = 3094-0) osmolality calculated, serum (test 272 280-300 L code = osmolality calculated, serum) creatinine (test code = 0.6 mg/dL 0.50-0.90 creatinine) glomerular filtration rate (test >60.00 code = glomerular filtration rate) Urea nitrogen/Creatinine [Mass 11.7 12-20 L Ratio] in Serum or Plasma (test code = 3097-3) sodium level (test code = sodium 137 mmol/L 135-145 level) potassium level (test code = 4.1 mmol/L 3.5-5.2 potassium level) chloride level (test code = 103 mmol/L 98-108 chloride level) CO2 (test code = CO2) 23 mmol/L 21-32 anion gap (test code = anion gap) 15.1 mEq/L 12-20 calcium level (test code = calcium 9.2 mg/dL 8.6-10.0 level) total protein (test code = total 7.3 g/dL 6.6-8.7 protein) albumin (test code = albumin) 3.7 g/dL 3.5-5.2 globulin (test code = globulin) 3.6 gm/dL A/G ratio (test code = A/G ratio) 1.0 >1.0 bilirubin,total (test code = 0.6 mg/dL 0.0-1.2 bilirubin,total) AST/SGOT (test code = AST/SGOT) 15 U/L 15-32 Alanine aminotransferase 7 U/L 0-33 [Enzymatic activity/volume] in Serum or Plasma (test code = 1742-6) Alkaline phosphatase [Enzymatic 188 U/L 35-105 H activity/volume] in Serum or Plasma (test code = 6768-6) [facility] HospitalUrate [Mass/volume] in [id number] 02:24:00 Test Item Value Reference Range Interpretation Comments uric acid (test code = uric acid) 5.4 mg/dL 2.4-5.7 [facility] HospitalUrinalysis macro (dipstick) panel - [id number] 14:03:52 Test Item Value Reference Range Interpretation Comments Leukocytes (test code = Leukocytes) Negative Nitrite (test code = Nitrite) negative Urobilinogen (test code = .2 Urobilinogen) Protein (test code = Protein) 30 pH (test code = pH) 7.0 Blood (test code = Blood) Negative Specific [place] (test code = 1.020 Specific [place]) Ketone (test code = Ketone) Negative Bilirubin (test code = Bilirubin) Negative Glucose (test code = Glucose) Negative Appearance (test code = Appearance) Clear Color (test code = Color) Yellow [facility] HospitalUrinalysis macro (dipstick) panel - [id number] 14:03:52 Test Item Value Reference Range Interpretation Comments Leukocytes (test code = Leukocytes) Negative Nitrite (test code = Nitrite) negative Urobilinogen (test code = .2 Urobilinogen) Protein (test code = Protein) 30 pH (test code = pH) 7.0 Blood (test code = Blood) Negative Specific [place] (test code = 1.020 Specific [place]) Ketone (test code = Ketone) Negative Bilirubin (test code = Bilirubin) Negative Glucose (test code = Glucose) Negative Appearance (test code = Appearance) Clear Color (test code = Color) Yellow [facility] HospitalUrinalysis macro (dipstick) panel - [id number] 14:03:52 Test Item Value Reference Range Interpretation Comments Leukocytes (test code = Leukocytes) Negative Nitrite (test code = Nitrite) negative Urobilinogen (test code = .2 Urobilinogen) Protein (test code = Protein) 30 pH (test code = pH) 7.0 Blood (test code = Blood) Negative Specific [place] (test code = 1.020 Specific [place]) Ketone (test code = Ketone) Negative Bilirubin (test code = Bilirubin) Negative Glucose (test code = Glucose) Negative Appearance (test code = Appearance) Clear Color (test code = Color) Yellow [facility] HospitalUrinalysis macro (dipstick) panel - [id number] 14:03:52 Test Item Value Reference Range Interpretation Comments Leukocytes (test code = Leukocytes) Negative Nitrite (test code = Nitrite) negative Urobilinogen (test code = .2 Urobilinogen) Protein (test code = Protein) 30 pH (test code = pH) 7.0 Blood (test code = Blood) Negative Specific [place] (test code = 1.020 Specific [place]) Ketone (test code = Ketone) Negative Bilirubin (test code = Bilirubin) Negative Glucose (test code = Glucose) Negative Appearance (test code = Appearance) Clear Color (test code = Color) Yellow [facility] HospitalUrinalysis macro (dipstick) panel - [id number] 14:03:52 Test Item Value Reference Range Interpretation Comments Leukocytes (test code = Leukocytes) Negative Nitrite (test code = Nitrite) negative Urobilinogen (test code = .2 Urobilinogen) Protein (test code = Protein) 30 pH (test code = pH) 7.0 Blood (test code = Blood) Negative Specific [place] (test code = 1.020 Specific [place]) Ketone (test code = Ketone) Negative Bilirubin (test code = Bilirubin) Negative Glucose (test code = Glucose) Negative Appearance (test code = Appearance) Clear Color (test code = Color) Yellow [facility] HospitalUrinalysis macro (dipstick) panel - [id number] 14:03:52 Test Item Value Reference Range Interpretation Comments Leukocytes (test code = Leukocytes) Negative Nitrite (test code = Nitrite) negative Urobilinogen (test code = .2 Urobilinogen) Protein (test code = Protein) 30 pH (test code = pH) 7.0 Blood (test code = Blood) Negative Specific [place] (test code = 1.020 Specific [place]) Ketone (test code = Ketone) Negative Bilirubin (test code = Bilirubin) Negative Glucose (test code = Glucose) Negative Appearance (test code = Appearance) Clear Color (test code = Color) Yellow [facility] HospitalUrinalysis macro (dipstick) panel - [id number] 14:03:52 Test Item Value Reference Range Interpretation Comments Leukocytes (test code = Leukocytes) Negative Nitrite (test code = Nitrite) negative Urobilinogen (test code = .2 Urobilinogen) Protein (test code = Protein) 30 pH (test code = pH) 7.0 Blood (test code = Blood) Negative Specific [place] (test code = 1.020 Specific [place]) Ketone (test code = Ketone) Negative Bilirubin (test code = Bilirubin) Negative Glucose (test code = Glucose) Negative Appearance (test code = Appearance) Clear Color (test code = Color) Yellow [facility] Biophysical profile panel [id number] 13:51:37 Test Item Value Reference Range Interpretation Comments Amniotic Fluid Index (test code = 2 (14.8) Amniotic Fluid Index) Tone (test code = Tone) 2 Breathing (test code = 2 Breathing) Movement (test code = 2 Movement) Non-Stress Test (test code = 2 Non-Stress Test) [facility] Biophysical profile panel [id number] 13:51:37 Test Item Value Reference Range Interpretation Comments Amniotic Fluid Index (test code = 2 (14.8) Amniotic Fluid Index) Tone (test code = Tone) 2 Breathing (test code = 2 Breathing) Movement (test code = 2 Movement) Non-Stress Test (test code = 2 Non-Stress Test) [facility] Biophysical profile [id number] 13:51:37 Test Item Value Reference Range Interpretation Comments Amniotic Fluid Index (test code = 2 (14.8) Amniotic Fluid Index) Tone (test code = Tone) 2 Breathing (test code = 2 Breathing) Movement (test code = 2 Movement) Non-Stress Test (test code = 2 Non-Stress Test) [facility] Biophysical profile [id number] 13:51:37 Test Item Value Reference Range Interpretation Comments Amniotic Fluid Index (test code = 2 (14.8) Amniotic Fluid Index) Tone (test code = Tone) 2 Breathing (test code = 2 Breathing) Movement (test code = 2 Movement) Non-Stress Test (test code = 2 Non-Stress Test) [facility] Biophysical profile [id number] 13:51:37 Test Item Value Reference Range Interpretation Comments Amniotic Fluid Index (test code = 2 (14.8) Amniotic Fluid Index) Tone (test code = Tone) 2 Breathing (test code = 2 Breathing) Movement (test code = 2 Movement) Non-Stress Test (test code = 2 Non-Stress Test) [facility] Biophysical profile [id number] 13:51:37 Test Item Value Reference Range Interpretation Comments Amniotic Fluid Index (test code = 2 (14.8) Amniotic Fluid Index) Tone (test code = Tone) 2 Breathing (test code = 2 Breathing) Movement (test code = 2 Movement) Non-Stress Test (test code = 2 Non-Stress Test) [facility] Biophysical profile [id number] 13:51:37 Test Item Value Reference Range Interpretation Comments Amniotic Fluid Index (test code = 2 (14.8) Amniotic Fluid Index) Tone (test code = Tone) 2 Breathing (test code = 2 Breathing) Movement (test code = 2 Movement) Non-Stress Test (test code = 2 Non-Stress Test) [facility]non[facility] [id number] 16:37:00 Test Item Value Reference Range Interpretation Comments Reactive (test code = Reactive) Yes Contractions (test code = Contractions) No [facility]-stress [id number] 16:37:00 Test Item Value Reference Range Interpretation Comments Reactive (test code = Reactive) Yes Contractions (test code = Contractions) [facility] [id number] 16:37:00 Test Item Value Reference Range Interpretation Comments Reactive (test code = Reactive) Yes Contractions (test code = Contractions) No [facility] [id number] 16:37:00 Test Item Value Reference Range Interpretation Comments Reactive (test code = Reactive) Yes Contractions (test code = Contractions) No [facility] [id number] 16:37:00 Test Item Value Reference Range Interpretation Comments Reactive (test code = Reactive) Yes Contractions (test code = Contractions) No [facility] [id number] 16:37:00 Test Item Value Reference Range Interpretation Comments Reactive (test code = Reactive) Yes Contractions (test code = Contractions) No [facility] [id number] 16:37:00 Test Item Value Reference Range Interpretation Comments Reactive (test code = Reactive) Yes Contractions (test code = Contractions) No [facility] Biophysical profile panel [id number] 15:45:00 Test Item Value Reference Range Interpretation Comments Amniotic Fluid Index (test code = 2 (15.7) Amniotic Fluid Index) Tone (test code = Tone) 2 Breathing (test code = 2 Breathing) Movement (test code = 2 Movement) [facility] Biophysical profile panel [id number] 15:45:00 Test Item Value Reference Range Interpretation Comments Amniotic Fluid Index (test code = 2 (15.7) Amniotic Fluid Index) Tone (test code = Tone) 2 Breathing (test code = 2 Breathing) Movement (test code = 2 Movement) [facility] Biophysical profile panel [id number] 15:45:00 Test Item Value Reference Range Interpretation Comments Amniotic Fluid Index (test code = 2 (15.7) Amniotic Fluid Index) Tone (test code = Tone) 2 Breathing (test code = 2 Breathing) Movement (test code = 2 Movement) [facility] Biophysical profile panel [id number] 15:45:00 Test Item Value Reference Range Interpretation Comments Amniotic Fluid Index (test code = 2 (15.7) Amniotic Fluid Index) Tone (test code = Tone) 2 Breathing (test code = 2 Breathing) Movement (test code = 2 Movement) [facility] Biophysical profile panel [id number] 15:45:00 Test Item Value Reference Range Interpretation Comments Amniotic Fluid Index (test code = 2 (15.7) Amniotic Fluid Index) Tone (test code = Tone) 2 Breathing (test code = 2 Breathing) Movement (test code = 2 Movement) [facility] Biophysical profile panel [id number] 15:45:00 Test Item Value Reference Range Interpretation Comments Amniotic Fluid Index (test code = 2 (15.7) Amniotic Fluid Index) Tone (test code = Tone) 2 Breathing (test code = 2 Breathing) Movement (test code = 2 Movement) [facility] Biophysical profile panel [id number] 15:45:00 Test Item Value Reference Range Interpretation Comments Amniotic Fluid Index (test code = 2 (15.7) Amniotic Fluid Index) Tone (test code = Tone) 2 Breathing (test code = 2 Breathing) Movement (test code = 2 Movement) [facility] panel - Serum or Plasma 2019-03-22 11:38:00 Test Item Value Reference Range Interpretation Comments Results (test code = fasting 97; 1hr 159; Results) 2hr 121 [facility] GroupGlucose tolerance 3 hours panel - Serum or Plasma 2019-03-22 11:38:00 Test Item Value Reference Range Interpretation Comments Results (test code = fasting 97; 1hr 159; Results) 2hr 121 [facility] - Serum or Plasma 2019-03-22 11:38:00 Test Item Value Reference Range Interpretation Comments Results (test code = fasting 97; 1hr 159; Results) 2hr 121 [facility] hours panel - Serum or Plasma 2019-03-22 11:38:00 Test Item Value Reference Range Interpretation Comments Results (test code = fasting 97; 1hr 159; Results) 2hr 121 [facility]Glucose [Mass/volume] in Serum or Plasma --1 hour post dose [id number] 09:53:00 Test Item Value Reference Range Interpretation Comments Results (test code = Results) 151 [facility]Gl[facility] [Mass/volume] in Serum or Plasma --1 hour post dose [id number] 09:53:00 Test Item Value Reference Range Interpretation Comments Results (test code = Results) 151 [facility]Gl[facility] [Mass/volume] in Serum or Plasma --1 hour post dose [id number] 09:53:00 Test Item Value Reference Range Interpretation Comments Results (test code = Results) 151 [facility] [Mass/volume] in Serum or Plasma --1 hour post dose [id number] 09:53:00 Test Item Value Reference Range Interpretation Comments Results (test code = Results) 151 [facility] (dipstick) panel - [id number] 09:17:09 Test Item Value Reference Range Interpretation Comments Leukocytes (test code = Leukocytes) Negative Nitrite (test code = Nitrite) negative Urobilinogen (test code = .2 Urobilinogen) Protein (test code = Protein) 30 pH (test code = pH) 7.0 Blood (test code = Blood) Negative Specific [place] (test code = 1.020 Specific [place]) Ketone (test code = Ketone) Negative Bilirubin (test code = Bilirubin) Negative Glucose (test code = Glucose) Negative Appearance (test code = Appearance) Clear Color (test code = Color) Yellow [facility] HospitalUrinalysis macro (dipstick) panel - [id number] 09:17:09 Test Item Value Reference Range Interpretation Comments Leukocytes (test code = Leukocytes) Negative Nitrite (test code = Nitrite) negative Urobilinogen (test code = .2 Urobilinogen) Protein (test code = Protein) 30 pH (test code = pH) 7.0 Blood (test code = Blood) Negative Specific [place] (test code = 1.020 Specific [place]) Ketone (test code = Ketone) Negative Bilirubin (test code = Bilirubin) Negative Glucose (test code = Glucose) Negative Appearance (test code = Appearance) Clear Color (test code = Color) Yellow [facility] HospitalUrinalysis macro (dipstick) panel - [id number] 09:17:09 Test Item Value Reference Range Interpretation Comments Leukocytes (test code = Leukocytes) Negative Nitrite (test code = Nitrite) negative Urobilinogen (test code = .2 Urobilinogen) Protein (test code = Protein) 30 pH (test code = pH) 7.0 Blood (test code = Blood) Negative Specific [place] (test code = 1.020 Specific [place]) Ketone (test code = Ketone) Negative Bilirubin (test code = Bilirubin) Negative Glucose (test code = Glucose) Negative Appearance (test code = Appearance) Clear Color (test code = Color) Yellow [facility] HospitalUrinalysis macro (dipstick) panel - [id number] 09:17:09 Test Item Value Reference Range Interpretation Comments Leukocytes (test code = Leukocytes) Negative Nitrite (test code = Nitrite) negative Urobilinogen (test code = .2 Urobilinogen) Protein (test code = Protein) 30 pH (test code = pH) 7.0 Blood (test code = Blood) Negative Specific [place] (test code = 1.020 Specific [place]) Ketone (test code = Ketone) Negative Bilirubin (test code = Bilirubin) Negative Glucose (test code = Glucose) Negative Appearance (test code = Appearance) Clear Color (test code = Color) [facility] - [id number] 08:00:00 Test Item Value Reference Range Interpretation Comments white blood count (test code = 9.7 K/uL 4.0-11.5 white blood count) red blood count (test code = red 3.84 M/uL 3.80-5.20 blood count) Hemoglobin [Mass/volume] in Blood 10.0 g/dL 10.5-15.7 L (test code = 718-7) hematocrit (test code = hematocrit) 33.1 % 34.0-50.0 L Erythrocyte mean corpuscular volume 86.2 fL 78-98 [Entitic volume] (test code = 92753-9) Erythrocyte mean corpuscular 26.1 pg 26.2-33.4 L hemoglobin [Entitic mass] (test code = 18692-9) mean corpuscular HGB conc (test 30.3 g/dL 31.5-36.2 L code = mean corpuscular HGB conc) red cell distribution width (test 12.1 % 11.5-15.5 code = red cell distribution width) Platelets [#/volume] in Blood (test 164 K/uL 137-338 code = 56686-8) Platelet mean volume [Entitic 10.4 fL 8.4-11.8 volume] in Blood (test code = 62736-7) Neutrophils.band form/100 68.9 % 44.4-80.1 leukocytes in Blood (test code = 96995-4) Lymphocytes/100 leukocytes in Body 22.2 % 10.0-50.0 fluid (test code = 04498-6) Monocytes/100 leukocytes in Blood 6.7 % 3.6-12.0 by Automated count (test code = 5905-5) Eosinophils/100 leukocytes in Blood 1.1 % 0.0-5.4 by Automated count (test code = 713-8) Basophils/100 leukocytes in 1.2 % 0.0-0.79 H Unspecified specimen (test code = 29338-2) [facility] HospitalComprehensive [facility] 2000 panel - Serum or Plasma 2019-03-17 08:00:00 Test Item Value Reference Range Interpretation Comments glucose (test code = glucose) 115 mg/dL 74-106 H Urea nitrogen [Mass/volume] in 7 mg/dL 6-20 Serum or Plasma (test code = 3094-0) Osmolality of Serum or Plasma 275 280-300 L (test code = 2692-2) creatinine (test code = 0.6 mg/dL 0.50-0.90 creatinine) glomerular filtration rate (test >60.00 code = glomerular filtration rate) Urea nitrogen/Creatinine [Mass 11.7 12-20 L Ratio] in Serum or Plasma (test code = 3097-3) sodium level (test code = sodium 138 mmol/L 135-145 level) Potassium [Moles/volume] in Body 3.8 mmol/L 3.5-5.2 fluid (test code = 2821-7) chloride level (test code = 104 mmol/L 98-108 chloride level) CO2 (test code = CO2) 21 mmol/L 21-32 anion gap (test code = anion gap) 16.8 mEq/L 12-20 calcium level (test code = calcium 9.0 mg/dL 8.6-10.0 level) total protein (test code = total 6.6 g/dL 6.6-8.7 protein) albumin (test code = albumin) 3.4 g/dL 3.5-5.2 L globulin (test code = globulin) 3.2 gm/dL A/G ratio (test code = A/G ratio) 1.1 >1.0 bilirubin,total (test code = <0.3 0.0-1.2 bilirubin,total) AST/SGOT (test code = AST/SGOT) 16 U/L 15-32 Alanine aminotransferase 6 U/L 0-33 [Enzymatic activity/volume] in Serum or Plasma (test code = 1742-6) Alkaline phosphatase [Enzymatic 117 U/L 35-105 H activity/volume] in Serum or Plasma (test code = 6768-6) [facility] HospitalBlood [facility] antibody screen [Presence] in Serum or Plasma 2019-03-17 08:00:00 Test Item Value Reference Range Interpretation Comments Blood group antibody screen negative [Presence] in Serum or Plasma (test code = 890-4) [facility] HospitalReagin Ab [Presence] in Serum by [id number] 08:00:00 Test Item Value Reference Range Interpretation Comments Reagin Ab [Presence] in Serum by nonreactive nonreactive RPR (test code = 56804-3) [facility] HospitalHIV 1+2 Ab [Presence] in [id number] 08:00:00HIV P24 AgHIV-1/2 AbWhit[facility] Surgical HospitalCB W Auto Differential panel - Blood 2019-03-17 08:00:00 Test Item Value Reference Range Interpretation Comments white blood count (test code = 9.7 K/uL 4.0-11.5 white blood count) red blood count (test code = red 3.84 M/uL 3.80-5.20 blood count) Hemoglobin [Mass/volume] in Blood 10.0 g/dL 10.5-15.7 L (test code = 718-7) hematocrit (test code = hematocrit) 33.1 % 34.0-50.0 L Erythrocyte mean corpuscular volume 86.2 fL 78-98 [Entitic volume] (test code = 77997-4) Erythrocyte mean corpuscular 26.1 pg 26.2-33.4 L hemoglobin [Entitic mass] (test code = 77956-0) mean corpuscular HGB conc (test 30.3 g/dL 31.5-36.2 L code = mean corpuscular HGB conc) red cell distribution width (test 12.1 % 11.5-15.5 code = red cell distribution width) Platelets [#/volume] in Blood (test 164 K/uL 137-338 code = 45820-5) Platelet mean volume [Entitic 10.4 fL 8.4-11.8 volume] in Blood (test code = 06955-8) Neutrophils.band form/100 68.9 % 44.4-80.1 leukocytes in Blood (test code = 88477-6) Lymphocytes/100 leukocytes in Body 22.2 % 10.0-50.0 fluid (test code = 56558-8) Monocytes/100 leukocytes in Blood 6.7 % 3.6-12.0 by Automated count (test code = 5905-5) Eosinophils/100 leukocytes in Blood 1.1 % 0.0-5.4 by Automated count (test code = 713-8) Basophils/100 leukocytes in 1.2 % 0.0-0.79 H Unspecified specimen (test code = 70527-3) [facility] HospitalComprehensive [facility] 2000 panel - Serum or Plasma 2019-03-17 08:00:00 Test Item Value Reference Range Interpretation Comments glucose (test code = glucose) 115 mg/dL 74-106 H Urea nitrogen [Mass/volume] in 7 mg/dL 6-20 Serum or Plasma (test code = 3094-0) Osmolality of Serum or Plasma 275 280-300 L (test code = 2692-2) creatinine (test code = 0.6 mg/dL 0.50-0.90 creatinine) glomerular filtration rate (test >60.00 code = glomerular filtration rate) Urea nitrogen/Creatinine [Mass 11.7 12-20 L Ratio] in Serum or Plasma (test code = 3097-3) sodium level (test code = sodium 138 mmol/L 135-145 level) Potassium [Moles/volume] in Body 3.8 mmol/L 3.5-5.2 fluid (test code = 2821-7) chloride level (test code = 104 mmol/L 98-108 chloride level) CO2 (test code = CO2) 21 mmol/L 21-32 anion gap (test code = anion gap) 16.8 mEq/L 12-20 calcium level (test code = calcium 9.0 mg/dL 8.6-10.0 level) total protein (test code = total 6.6 g/dL 6.6-8.7 protein) albumin (test code = albumin) 3.4 g/dL 3.5-5.2 L globulin (test code = globulin) 3.2 gm/dL A/G ratio (test code = A/G ratio) 1.1 >1.0 bilirubin,total (test code = <0.3 0.0-1.2 bilirubin,total) AST/SGOT (test code = AST/SGOT) 16 U/L 15-32 Alanine aminotransferase 6 U/L 0-33 [Enzymatic activity/volume] in Serum or Plasma (test code = 1742-6) Alkaline phosphatase [Enzymatic 117 U/L 35-105 H activity/volume] in Serum or Plasma (test code = 6768-6) [facility] HospitalBlood [facility] antibody screen [Presence] in Serum or Plasma 2019-03-17 08:00:00 Test Item Value Reference Range Interpretation Comments Blood group antibody screen negative [Presence] in Serum or Plasma (test code = 890-4) [facility] HospitalReagin Ab [Presence] in Serum by [id number] 08:00:00 Test Item Value Reference Range Interpretation Comments Reagin Ab [Presence] in Serum by nonreactive nonreactive RPR (test code = 35422-6) [facility] HospitalHIV 1+2 Ab [Presence] in [id number] 08:00:00HIV P24 AgHIV-1/2 [facility]MaW[facility] HospitalCB W Auto Differential panel - Blood 2019-03-17 08:00:00 Test Item Value Reference Range Interpretation Comments white blood count (test code = 9.7 K/uL 4.0-11.5 white blood count) red blood count (test code = red 3.84 M/uL 3.80-5.20 blood count) Hemoglobin [Mass/volume] in Blood 10.0 g/dL 10.5-15.7 L (test code = 718-7) hematocrit (test code = hematocrit) 33.1 % 34.0-50.0 L Erythrocyte mean corpuscular volume 86.2 fL 78-98 [Entitic volume] (test code = 62395-2) Erythrocyte mean corpuscular 26.1 pg 26.2-33.4 L hemoglobin [Entitic mass] (test code = 97240-6) mean corpuscular HGB conc (test 30.3 g/dL 31.5-36.2 L code = mean corpuscular HGB conc) red cell distribution width (test 12.1 % 11.5-15.5 code = red cell distribution width) Platelets [#/volume] in Blood (test 164 K/uL 137-338 code = 66244-5) Platelet mean volume [Entitic 10.4 fL 8.4-11.8 volume] in Blood (test code = 40731-7) Neutrophils.band form/100 68.9 % 44.4-80.1 leukocytes in Blood (test code = 31586-5) Lymphocytes/100 leukocytes in Body 22.2 % 10.0-50.0 fluid (test code = 68685-5) Monocytes/100 leukocytes in Blood 6.7 % 3.6-12.0 by Automated count (test code = 5905-5) Eosinophils/100 leukocytes in Blood 1.1 % 0.0-5.4 by Automated count (test code = 713-8) Basophils/100 leukocytes in 1.2 % 0.0-0.79 H Unspecified specimen (test code = 00202-0) [facility] HospitalComprehensive [facility] 2000 panel - Serum or Plasma 2019-03-17 08:00:00 Test Item Value Reference Range Interpretation Comments glucose (test code = glucose) 115 mg/dL 74-106 H Urea nitrogen [Mass/volume] in 7 mg/dL 6-20 Serum or Plasma (test code = 3094-0) Osmolality of Serum or Plasma 275 280-300 L (test code = 2692-2) creatinine (test code = 0.6 mg/dL 0.50-0.90 creatinine) glomerular filtration rate (test >60.00 code = glomerular filtration rate) Urea nitrogen/Creatinine [Mass 11.7 12-20 L Ratio] in Serum or Plasma (test code = 3097-3) sodium level (test code = sodium 138 mmol/L 135-145 level) Potassium [Moles/volume] in Body 3.8 mmol/L 3.5-5.2 fluid (test code = 2821-7) chloride level (test code = 104 mmol/L 98-108 chloride level) CO2 (test code = CO2) 21 mmol/L 21-32 anion gap (test code = anion gap) 16.8 mEq/L 12-20 calcium level (test code = calcium 9.0 mg/dL 8.6-10.0 level) total protein (test code = total 6.6 g/dL 6.6-8.7 protein) albumin (test code = albumin) 3.4 g/dL 3.5-5.2 L globulin (test code = globulin) 3.2 gm/dL A/G ratio (test code = A/G ratio) 1.1 >1.0 bilirubin,total (test code = <0.3 0.0-1.2 bilirubin,total) AST/SGOT (test code = AST/SGOT) 16 U/L 15-32 Alanine aminotransferase 6 U/L 0-33 [Enzymatic activity/volume] in Serum or Plasma (test code = 1742-6) Alkaline phosphatase [Enzymatic 117 U/L 35-105 H activity/volume] in Serum or Plasma (test code = 6768-6) [facility] HospitalBlood [facility] antibody screen [Presence] in Serum or Plasma 2019-03-17 08:00:00 Test Item Value Reference Range Interpretation Comments Blood group antibody screen negative [Presence] in Serum or Plasma (test code = 890-4) [facility] HospitalReagin Ab [Presence] in Serum by [id number] 08:00:00 Test Item Value Reference Range Interpretation Comments Reagin Ab [Presence] in Serum by nonreactive nonreactive RPR (test code = 73849-1) [facility] HospitalHIV 1+2 Ab [Presence] in [id number] 08:00:00HIV P24 AgHIV-1/2 AbMataSharkey [facility]aquena [facility] HospitalUrinalysis macro (dipstick) panel - Urine 2019-02-24 10:51:23 Test Item Value Reference Range Interpretation Comments Leukocytes (test code = Leukocytes) Negative Nitrite (test code = Nitrite) negative Urobilinogen (test code = .2 Urobilinogen) Protein (test code = Protein) 30 pH (test code = pH) 7.0 Blood (test code = Blood) Negative Specific [place] (test code = 1.020 Specific [place]) Ketone (test code = Ketone) Negative Bilirubin (test code = Bilirubin) Negative Glucose (test code = Glucose) Negative Appearance (test code = Appearance) Clear Color (test code = Color) Yellow [facility] HospitalUrinalysis macro (dipstick) panel - [id number] 10:51:23 Test Item Value Reference Range Interpretation Comments Leukocytes (test code = Leukocytes) Negative Nitrite (test code = Nitrite) negative Urobilinogen (test code = .2 Urobilinogen) Protein (test code = Protein) 30 pH (test code = pH) 7.0 Blood (test code = Blood) Negative Specific [place] (test code = 1.020 Specific [place]) Ketone (test code = Ketone) Negative Bilirubin (test code = Bilirubin) Negative Glucose (test code = Glucose) Negative Appearance (test code = Appearance) Clear Color (test code = Color) Yellow [facility] HospitalUrinalysis macro (dipstick) panel - [id number] 10:51:23 Test Item Value Reference Range Interpretation Comments Leukocytes (test code = Leukocytes) Negative Nitrite (test code = Nitrite) negative Urobilinogen (test code = .2 Urobilinogen) Protein (test code = Protein) 30 pH (test code = pH) 7.0 Blood (test code = Blood) Negative Specific [place] (test code = 1.020 Specific [place]) Ketone (test code = Ketone) Negative Bilirubin (test code = Bilirubin) Negative Glucose (test code = Glucose) Negative Appearance (test code = Appearance) Clear Color (test code = Color) Yellow [facility] GroupMicroscopic observation [Identifier] in Vaginal fluid by Wet [id number] 09:32:30 Test Item Value Reference Range Interpretation Comments Clue Cells (test code = Clue Cells) positive WBCs (test code = WBCs) negative Trichomonads (test code = negative Trichomonads) Epithelial cells (test code = abnormal Epithelial cells) RBCs (test code = RBCs) negative [facility] GroupMicroscopic observation [Identifier] in Vaginal fluid by Wet [id number] 09:32:30 Test Item Value Reference Range Interpretation Comments Clue Cells (test code = Clue Cells) positive WBCs (test code = WBCs) negative Trichomonads (test code = negative Trichomonads) Epithelial cells (test code = abnormal Epithelial cells) RBCs (test code = RBCs) negative [facility] HospitalMicroscopic observation [Identifier] in Vaginal fluid by Wet [id number] 09:32:30 Test Item Value Reference Range Interpretation Comments Clue Cells (test code = Clue Cells) positive WBCs (test code = WBCs) negative Trichomonads (test code = negative Trichomonads) Epithelial cells (test code = abnormal Epithelial cells) RBCs (test code = RBCs) negative [facility] HospitalChlamydia trachomatis+Neisseria gonorrhoeae DNA [Presence] in Cervix by Probe and target amplification [id number] 09:05:00 ResultsMataSharkey Issaquena Community HospitalMicroscopic observation [Identifier] in Cervix by Cyto stain.thin [id number] 09:05:[facility] - [id number] 01:40:00 Test Item Value Reference Range Interpretation Comments white blood count (test code = 10.8 K/uL 4.0-11.5 white blood count) red blood count (test code = red 3.79 M/uL 3.80-5.20 L blood count) Hemoglobin [Mass/volume] in Blood 10.1 g/dL 10.5-15.7 L (test code = 718-7) hematocrit (test code = hematocrit) 32.5 % 34.0-50.0 L Erythrocyte mean corpuscular volume 85.6 fL 78-98 [Entitic volume] (test code = 01390-6) Erythrocyte mean corpuscular 26.6 pg 26.2-33.4 hemoglobin [Entitic mass] (test code = 76113-4) mean corpuscular HGB conc (test 31.1 g/dL 31.5-36.2 L code = mean corpuscular HGB conc) red cell distribution width (test 12.7 % 11.5-15.5 code = red cell distribution width) Platelets [#/volume] in Blood (test 168 K/uL 137-338 code = 68553-3) Platelet mean volume [Entitic 11.3 fL 8.4-11.8 volume] in Blood (test code = 10075-4) Neutrophils.band form/100 70.8 % 44.4-80.1 leukocytes in Blood (test code = 46865-9) Lymphocytes/100 leukocytes in Body 20.2 % 10.0-50.0 fluid (test code = 81552-1) Monocytes/100 leukocytes in Blood 7.5 % 3.6-12.04 by Automated count (test code = 5905-5) Eosinophils/100 leukocytes in Blood 0.7 % 0.0-5.41 by Automated count (test code = 713-8) Basophils/100 leukocytes in 0.8 % 0.0-0.79 H Unspecified specimen (test code = 92184-0) [facility] HospitalRubella virus IgG Ab [Titer] in [id number] 01:40:00 Test Item Value Reference Range Interpretation Comments Rubella virus IgG Ab 235.3 [IU]/mL [Units/volume] in Serum by Immunoassay (test code = 5334-8) [facility] HospitalABO & Rh group [Type] in [id number] 01:40:00 Test Item Value Reference Range Interpretation Comments Rh [Type] in Blood (test code = 4+ 14371-4) ABO and Rh group panel - Blood O positive (test code = 86386-5) [facility] W Auto Differential panel - [id number] 01:40:00 Test Item Value Reference Range Interpretation Comments white blood count (test code = 10.8 K/uL 4.0-11.5 white blood count) red blood count (test code = red 3.79 M/uL 3.80-5.20 L blood count) Hemoglobin [Mass/volume] in Blood 10.1 g/dL 10.5-15.7 L (test code = 718-7) hematocrit (test code = hematocrit) 32.5 % 34.0-50.0 L Erythrocyte mean corpuscular volume 85.6 fL 78-98 [Entitic volume] (test code = 73437-5) Erythrocyte mean corpuscular 26.6 pg 26.2-33.4 hemoglobin [Entitic mass] (test code = 62130-5) mean corpuscular HGB conc (test 31.1 g/dL 31.5-36.2 L code = mean corpuscular HGB conc) red cell distribution width (test 12.7 % 11.5-15.5 code = red cell distribution width) Platelets [#/volume] in Blood (test 168 K/uL 137-338 code = 70842-3) Platelet mean volume [Entitic 11.3 fL 8.4-11.8 volume] in Blood (test code = 28771-1) Neutrophils.band form/100 70.8 % 44.4-80.1 leukocytes in Blood (test code = 03692-5) Lymphocytes/100 leukocytes in Body 20.2 % 10.0-50.0 fluid (test code = 45780-0) Monocytes/100 leukocytes in Blood 7.5 % 3.6-12.04 by Automated count (test code = 5905-5) Eosinophils/100 leukocytes in Blood 0.7 % 0.0-5.41 by Automated count (test code = 713-8) Basophils/100 leukocytes in 0.8 % 0.0-0.79 H Unspecified specimen (test code = 43176-8) [facility] HospitalRubella virus IgG Ab [Titer] in [id number] 01:40:00 Test Item Value Reference Range Interpretation Comments Rubella virus IgG Ab 235.3 [IU]/mL [Units/volume] in Serum by Immunoassay (test code = 5334-8) [facility] HospitalABO & Rh group [Type] in [id number] 01:40:00 Test Item Value Reference Range Interpretation Comments Rh [Type] in Blood (test code = 4+ 03558-8) ABO and Rh group panel - Blood O positive (test code = 78020-9) [facility] HospitalBlood group antibody screen [Presence] in Serum or Plasma 2019-02-09 01:40:00 Test Item Value Reference Range Interpretation Comments Blood group antibody screen negative [Presence] in Serum or Plasma (test code = 890-4) [facility] W Auto Differential panel - [id number] 01:40:00 Test Item Value Reference Range Interpretation Comments white blood count (test code = 10.8 K/uL 4.0-11.5 white blood count) red blood count (test code = red 3.79 M/uL 3.80-5.20 L blood count) Hemoglobin [Mass/volume] in Blood 10.1 g/dL 10.5-15.7 L (test code = 718-7) hematocrit (test code = hematocrit) 32.5 % 34.0-50.0 L Erythrocyte mean corpuscular volume 85.6 fL 78-98 [Entitic volume] (test code = 22575-3) Erythrocyte mean corpuscular 26.6 pg 26.2-33.4 hemoglobin [Entitic mass] (test code = 21856-7) mean corpuscular HGB conc (test 31.1 g/dL 31.5-36.2 L code = mean corpuscular HGB conc) red cell distribution width (test 12.7 % 11.5-15.5 code = red cell distribution width) Platelets [#/volume] in Blood (test 168 K/uL 137-338 code = 57036-7) Platelet mean volume [Entitic 11.3 fL 8.4-11.8 volume] in Blood (test code = 62908-2) Neutrophils.band form/100 70.8 % 44.4-80.1 leukocytes in Blood (test code = 82670-8) Lymphocytes/100 leukocytes in Body 20.2 % 10.0-50.0 fluid (test code = 55926-3) Monocytes/100 leukocytes in Blood 7.5 % 3.6-12.04 by Automated count (test code = 5905-5) Eosinophils/100 leukocytes in Blood 0.7 % 0.0-5.41 by Automated count (test code = 713-8) Basophils/100 leukocytes in 0.8 % 0.0-0.79 H Unspecified specimen (test code = 63342-2) [facility] HospitalRubella virus IgG Ab [Titer] in [id number] 01:40:00 Test Item Value Reference Range Interpretation Comments Rubella virus IgG Ab 235.3 [IU]/mL [Units/volume] in Serum by Immunoassay (test code = 5334-8) [facility] GroupAB[facility] Rh group [Type] in [id number] 01:40:00 Test Item Value Reference Range Interpretation Comments Rh [Type] in Blood (test code = 4+ 86286-8) ABO and Rh group panel - Blood O positive (test code = 79350-4) [facility] HospitalBlood group antibody screen [Presence] in Serum or Plasma 2019-02-09 01:40:00 Test Item Value Reference Range Interpretation Comments Blood group antibody screen negative [Presence] in Serum or Plasma (test code = 890-4) [facility] HospitalHIV 1+2 Ab [Presence] in [id number] 01:40:00HIV P24 AgHIV-1/2 AbWhitfield Medical Surgical HospitalBacteria identified in Urine by Culture 2019-02-09 01:40:00Bacteria Ur CultWhitfield Medical Surgical HospitalHepatitis B virus surface Ag [Presence] in [id number] 01:40:00 Test Item Value Reference Range Interpretation Comments .hepatitis B surface antigen (test negative negative code = .hepatitis B surface antigen) [facility] HospitalReagin Ab [Presence] in Serum by [id number] 01:40:00 Test Item Value Reference Range Interpretation Comments Reagin Ab [Presence] in Serum by nonreactive nonreactive RPR (test code = 33631-8) [facility]
[2022-08-10] MEDS ORDERED: LABETALOL 20 MG/4ML SYRINGE IV ONE (00:31)
[2022-08-10] MEDS ORDERED: Ringers Lactate 1,000 ML IV ONE (00:39)
[2022-08-10] MEDS ORDERED: KCL 20 MEQ/100 mL IVPB 100 ML IV ONE (00:39)
--- NOTE | 2022-08-10 01:15 | EDPHYS ---
Physician Documentation [facility] Name: Jimena Liu Age: 32 yrs Sex: Female : 1990 Arrival Date: 08/09/2022 Time: 23:58 Bed 6 Private MD: ED Physician Trina Lin HPI: 08/10 00:25 This 32 yrs old Black Female presents to ER via Ambulatory with complaints of Blood cp Pressure Problem. 00:25 The patient has elevated blood pressure and discovered this at a physician's office, cp and sent to the emergency department for evaluation. 00:25 Onset: The symptoms/episode began/occurred today. cp 00:25 Associated signs and symptoms: The patient has no apparent associated signs or symptoms.cp 00:25 Severity of symptoms: in the emergency department the blood pressure is improved, cp mildly, 198 mm Hg. FIBER OPTICS TECHNICIAN: 00:29 LMP 07/19/2022 as6 Historical: - Allergies: 00:28 No Known Allergies; as6 - Home Meds: 00:28 None [Active]; as6 - PMHx: 00:28 None; as6 - PSHx: 00:28 section; as6 - Immunization history:: Client reports receiving the 2nd dose of the Covid vaccine, pfizer. - Social history:: Smoking status: Patient reports the use of cigarette tobacco products, denies chronic smoking, but will smoke occasionally. ROS: 00:29 Constitutional: Negative for body aches, chills, fever, poor PO intake. cp 00:29 Cardiovascular: Negative for chest pain, edema, palpitations. 00:29 Respiratory: Negative for cough, shortness of breath, wheezing. 00:29 Abdomen/GI: Negative for abdominal pain, nausea, vomiting, and diarrhea, constipation. 00:29 Back: Negative for pain at rest, pain with movement. cp 00:29 Skin: Negative for rash. 00:29 Neuro: Negative for altered mental status, dizziness, headache, numbness, weakness. 00:29 All other systems are negative. Exam: 00:38 ECG was reviewed by the Attending Physician. cp 00:39 Head/Face: Normocephalic, atraumatic. cp 00:39 Constitutional: The patient appears in no acute distress, alert, awake, comfortable, non-diaphoretic, non-toxic, well developed, well nourished. 00:39 Eyes: Periorbital structures: appear normal, Conjunctiva: normal, no exudate, no injection, Sclera: no appreciated abnormality, Lids and lashes: appear normal, bilaterally. 00:39 ENT: External ear(s): are unremarkable, Nose: is normal, Mouth: Lips: dry, Oral mucosa: dry, Posterior pharynx: Airway: no evidence of obstruction, patent. 00:39 Neck: ROM/movement: is normal, is supple, without pain, no range of motions limitations. 00:39 Chest/axilla: Inspection: normal. 00:39 Cardiovascular: Rate: tachycardic, Rhythm: regular, Edema: is not appreciated, JVD: is not appreciated. 00:39 Respiratory: the patient does not display signs of respiratory distress, Respirations: normal, no use of accessory muscles, no retractions, labored breathing, is not present, Breath sounds: are clear throughout, no decreased breath sounds, no stridor, no wheezing. 00:39 Abdomen/GI: Inspection: abdomen appears normal, Palpation: abdomen is soft and non-tender, in all quadrants. 00:39 Back: pain, is absent, ROM is normal. 00:39 Neuro: Orientation: to person, place \T\ time. Mentation: is normal, Cerebellar function: is grossly normal, Motor: moves all fours, strength is normal, Sensation: is normal, Gait: is steady, at a normal pace, without difficulty. Vital Signs: 00:20 BP 198 / 135; Pulse 106; Resp 18 S; Temp 98.9(O); Pulse Ox 96% on R/A; Weight 68.04 kg as6 (R); Height 5 ft. 1 in. (154.94 cm) (R); Pain 0/10; 01:17 BP 195 / 129; Pulse 101; Resp 21 S; Pulse Ox 97% on R/A; as6 03:29 BP 162 / 113; Pulse 93; Resp 24 S; Pulse Ox 99% on R/A; as6 00:20 Body Mass Index 28.34 (68.04 kg, 154.94 cm) as6 MDM: 00:41 Data reviewed: vital signs, lab results from Christine. cp 00:42 Patient medically screened. sd2 08/10 00:28 Order name: BNP; Complete Time: 02:07 sd2 08/10 00:28 Order name: Troponin High Sensitivity; Complete Time: 02:07 sd2 08/10 00:31 Order name: CPK; Complete Time: 01:28 la1 08/10 00:31 Order name: Uric Acid; Complete Time: 01:28 la1 08/10 00:43 Order name: Urine For Protein, Random; Complete Time: 02:23 la1 08/10 00:43 Order name: Urine Microscopic Only; Complete Time: 02:23 la1 08/10 01:18 Order name: SARS RAPID tw5 08/10 01:19 Order name: Urine Dipstick-Ancillary; Complete Time: 01:24 EDMS 08/10 01:28 Order name: Urine --Ancillary (enter results); Complete Time: 02:23 wm 08/10 04:54 Order name: CBC with Automated Diff EDMS 08/10 05:21 Order name: Comprehensive Metabolic Panel EDMS 08/10 05:21 Order name: Troponin High Sensitivity EDVT 08/10 05:21 Order name: Lipid Profile EDVT 08/10 05:21 Order name: T4 Free EDVT 08/10 00:28 Order name: EKG - Nurse/Tech; Complete Time: 00:44 sd2 08/10 00:37 Order name: CT Stone Protocol cp 08/10 00:42 Order name: XRAY Chest (1 view) cp 08/10 05:21 Order name: Thyroid Stimulating Hormone EDMS 08/10 05:21 Order name: Transferrin Sat/Iron Binding EDMS 08/10 05:21 Order name: Ferritin EDVT 08/10 05:30 Order name: CBC Smear Scan EDVT 08/10 06:05 Order name: Type and Screen EDVT 08/10 06:24 Order name: Hemoglobin A1c EDVT 08/10 07:05 Order name: US EDMS 08/10 00:37 Order name: Fletcher; Complete Time: 01:17 cp 08/10 00:43 Order name: Urine Dipstick-Ancillary (obtain specimen); Complete Time: 01:17 la EC:38 Rate is 103 beats/min. Rhythm is regular. RI interval is normal. QRS interval is cp normal. QT interval is normal. Interpreted by me. Reviewed by me. Administered Medications: 00:51 Drug: Labetalol 20 mg Route: IV; Rate: bolus; Infused Over: 2 mins; Site: right as6 antecubital; 03:30 Follow up: Response: No adverse reaction; IV Status: Completed infusion; IV Intake: 4ml as6 00:51 Drug: Lactated Ringers Solution 1000 ml Route: IV; Rate: 75 ml/hr; Site: right as6 antecubital; 03:30 Follow up: Response: No adverse reaction; IV Status: Infusion continued upon admission as6 00:51 Drug: Potassium Chloride 20 mEq Route: IV; Rate: calculated rate; Site: right as6 antecubital; 03:30 Follow up: Response: No adverse reaction; IV Status: Completed infusion; IV Intake: as6 100ml 02:30 Drug: Metoprolol TARTRATE 50 mg Route: PO; 03:29 Follow up: Response: No adverse reaction 02:30 Drug: amLODIPine 5 mg Route: PO; 03:29 Follow up: Response: No adverse reaction 02:30 Drug: Aspirin Chewable Tablet 324 mg Route: PO; 03:29 Follow up: Response: No adverse reaction as Disposition Summary: 08/10/22 01:14 Hospitalization Ordered Hospitalization Status: Inpatient Admission cp Condition: Stable cp Problem: new cp Symptoms: have improved cp Bed/Room Type: Standard cp Provider: Joel Ramos(08/10/22 01:29) esequiel Location: Telemetry/MedSurg (Inpatient)(08/10/22 06:23) mw Room Assignment: [facility](08/10/22 06:23) mw Diagnosis - Acute kidney failure, unspecified cp - Hypertensive heart disease without heart failure cp Forms: - Medication Reconciliation Form cp - SBAR form cp Signatures: Dispatcher [employer] Trinh Cervantes RN RN mw Jimy Dorantes, SYRUP SHED SUPERVISOR-C SYRUP SHED SUPERVISOR-Cla1 Yefri Hernandez PA PA cp Jossue Albarran RN RN as6 Trina Lin MD MD sd2 Corrections: (The following items were deleted from the chart) 01:17 01:14 Telemetry/MedSurg (Inpatient) cp mw 01:17 01:14 cp mw 01:29 01:14 Enzo Carty cp la1 06:23 01:17 [facility] ER HOLD mw mw 06:23 01:17 ERHOLD- mw mw
--- NOTE | 2022-08-10 01:15 | ER ---
Nurse's Notes [facility] Name: Jimena Liu Age: 32 yrs Sex: Female : 1990 Arrival Date: 08/09/2022 Time: 23:58 Bed 6 Private MD: Diagnosis: Acute kidney failure, unspecified;Hypertensive heart disease without heart failure Presentation: 08/10 00:20 Chief complaint: Patient states: "I was having nasal congestion so I went to [place] [facility] and my blood pressure was really high and they told me I had bad kidneys". Coronavirus screen: At this time, the client does not indicate any symptoms associated with coronavirus-19. Ebola Screen: No symptoms or risks identified at this time. Initial Sepsis Screen: Does the patient meet any 2 criteria? No. Patient's initial sepsis screen is negative. Does the patient have a suspected source of infection? No. Patient's initial sepsis screen is negative. Risk Assessment: Do you want to hurt yourself or someone else? Patient reports no desire to harm self or others. Onset of symptoms was August 10, 2022. 00:20 Method Of Arrival: Ambulatory as6 00:20 Acuity: AQUILES 2 as6 CORRECTIVE THERAPIST: 00:29 LMP 07/19/2022 as6 Historical: - Allergies: 00:28 No Known Allergies; as6 - Home Meds: 00:28 None [Active]; as6 - PMHx: 00:28 None; as6 - PSHx: 00:28 section; as6 - Immunization history:: Client reports receiving the 2nd dose of the Covid vaccine, pfizer. - Social history:: Smoking status: Patient reports the use of cigarette tobacco products, denies chronic smoking, but will smoke occasionally. Screenin:29 Abuse screen: Denies threats or abuse. Denies injuries from another. Nutritional as6 screening: No deficits noted. Tuberculosis screening: No symptoms or risk factors identified. Fall Risk None identified. Assessment: 00:29 General: Appears in no apparent distress. Behavior is calm, cooperative. Pain: Denies as6 pain. Neuro: Level of Consciousness is awake, alert, obeys commands. Respiratory: Respiratory effort is even, unlabored. Vital Signs: 00:20 BP 198 / 135; Pulse 106; Resp 18 S; Temp 98.9(O); Pulse Ox 96% on R/A; Weight 68.04 kg as6 (R); Height 5 ft. 1 in. (154.94 cm) (R); Pain 0/10; 01:17 BP 195 / 129; Pulse 101; Resp 21 S; Pulse Ox 97% on R/A; as6 03:29 BP 162 / 113; Pulse 93; Resp 24 S; Pulse Ox 99% on R/A; as6 00:20 Body Mass Index 28.34 (68.04 kg, 154.94 cm) as6 ED Course: 08/09 23:58 Patient arrived in ED. as 08/10 00:01 Trina Lin MD is Attending Physician. sd2 00:24 Triage completed. as6 00:28 Yefri Henrandez PA is PHCP. cp 00:28 Jossue Albarran, ALTON is Primary Nurse. as6 00:28 Arm band placed on. as6 00:44 Patient has correct armband on for positive identification. Placed in gown. Bed in low mm9 position. Call light in reach. Side rails up X 1. Warm blanket given. used car make ready mechanic on. Pulse ox on. NIBP on. 00:45 EKG done, by ED staff, reviewed by Yefri MONTEZ. mm9 00:51 Inserted saline lock: 20 gauge in right antecubital area, using aseptic technique. as6 Blood collected. 00:51 BNP Sent. as6 00:51 Troponin High Sensitivity Sent. as6 00:52 CPK Sent. as6 00:52 Uric Acid Sent. as6 00:57 XRAY Chest (1 view) In Process Unspecified. EDMS 01:11 Enzo Carty MD is Hospitalizing Provider. cp 01:17 Fletcher cath inserted, using sterile technique, 16 Fr., by fl, balloon inflated, to as6 gravity drainage, urine specimen collected. returned clear yellow urine. Patient tolerated well. 01:18 No provider procedures requiring assistance completed. Patient admitted, IV remains in as6 place. 01:29 Joel Ramos is Hospitalizing Provider. la1 01:40 CT Stone Protocol In Process Unspecified. EDMS Administered Medications: 00:51 Drug: Labetalol 20 mg Route: IV; Rate: bolus; Infused Over: 2 mins; Site: right as6 antecubital; 03:30 Follow up: Response: No adverse reaction; IV Status: Completed infusion; IV Intake: 4ml as6 00:51 Drug: Lactated Ringers Solution 1000 ml Route: IV; Rate: 75 ml/hr; Site: right as6 antecubital; 03:30 Follow up: Response: No adverse reaction; IV Status: Infusion continued upon admission as6 00:51 Drug: Potassium Chloride 20 mEq Route: IV; Rate: calculated rate; Site: right as6 antecubital; 03:30 Follow up: Response: No adverse reaction; IV Status: Completed infusion; IV Intake: as6 100ml 02:30 Drug: Metoprolol TARTRATE 50 mg Route: PO; as6 03:29 Follow up: Response: No adverse reaction as6 02:30 Drug: amLODIPine 5 mg Route: PO; as6 03:29 Follow up: Response: No adverse reaction as6 02:30 Drug: Aspirin Chewable Tablet 324 mg Route: PO; as6 03:29 Follow up: Response: No adverse reaction as6 Medication: 01:18 VIS not applicable for this client. as6 Intake: 03:30 IV: 100ml; Total: 100ml. as6 03:30 IV: 4ml; Total: 104ml. as6 Outcome: 01:14 Decision to Hospitalize by Provider. cp 01:18 Admitted to ER Hold. Please see [facility] for further documentation. as6 01:18 Condition: stable 01:18 Instructed on the need for admit. 07:40 Admitted to Med/surg accompanied by tech, via stretcher, with chart, Report called to artis Ann RN 07:40 Condition: stable 07:40 Instructed on the need for admit. 07:53 Patient left the ED. aa5 Signatures: Dispatcher [employer] EDMS Amy Godoy Audri, RN RN aa5 Jimy Dorantes, PROFESSIONAL APPLICATION DESIGNER-C PROFESSIONAL APPLICATION DESIGNER-Cla1 Yefri Hernandez PA PA Jossue Moreno RN RN as6 Trina Lin MD MD sd2 Vianey Godoy mm9
[2022-08-10 01:18] LABS: Urine Blood 2+ (Negative); Urine Glucose Negative (Negative); Urine Protein 3+ (Negative); Urine Specific Gravity 1.015 (1.005-1.030)
[2022-08-10 01:24] LABS: Uric Acid 9.8 mg/dL (2.6-6.0)
[2022-08-10 01:54] LABS: Troponin High Sensitivity 307.5 pg/mL (<58.9)
[2022-08-10 02:15] LABS: Urine Bacteria <20 /HPF (<20); Urine RBC <5 /HPF (None Seen)
[2022-08-10 02:16] LABS: Urine Specific Gravity/Preg 1.015 (1.005-1.030)
[2022-08-10] MEDS ORDERED: ASPIRIN 81 MG CHEWABLE TABLET ONE (02:26)
[2022-08-10] MEDS ORDERED: METOPROLOL TAR 50 MG TAB ONE (02:26)
[2022-08-10] MEDS ORDERED: AMLODIPINE 5 MG TAB ONE (02:27)
--- NOTE | 2022-08-10 02:35 | P.HP ---
Certification for Inpatient Patient admitted to: Inpatient With expected LOS: >2 Midnights Patient will require the following post-hospital care: None Practitioner: I am a practitioner with admitting privileges, knowledge of patient current condition, hospital course, and medical plan of care. Services: Services provided to patient in accordance with Admission requirements found in Title 42 Section 412.3 of the Code of Federal Regulations <Jimy Dorantes - Last Filed: 08/10/22 02:30> Patient History Date of Service: 08/10/22 Reason for admission: Acute renal failure, NSTEMI History of Present Illness: 32-year-old female with known history of hypertension who has not seen a doctor for many years nor taken any blood pressure medications presented to stand-alone emergency department for URI symptoms for the last 1 week. It was noted upon arrival to stand-alone emergency department that patient was significantly h ypertensive with a blood pressure of 230/156. She was given oral clonidine initially which did not improve her blood pressure after this she had an IV placed and was given labetalol as well as having labs drawn. Patient was found to be in acute renal failure, patient elected to leave AGAINST MEDICAL ADVICE from stand-alone emergency department and came over to our facility for further evaluation. Her labs performed at stand-alone emergency department were significant for sodium of 135 potassium 2.5 bicarb 26 chloride 98 glucose 149 calcium 8.5 BUN 61 creatinine 13.6 LFTs within normal limits White blood cell count 7.6 hemoglobin 7.9 hematocrit 22.4 MCV 79.2 platelets 95 EKG with no STEMI criteria present. Patient was further evaluated at our hospital with additional labs performed revealing an elevated high-sensitivity troponin 307.5 elevated BNP 52,323 uric acid of 9.8 CPK 157 urine with 3+ protein, 2+ blood urine random protein 272.8. Chest x-ray was performed which was negative for acute findings CT stone protocol pending interpretation. Patient's blood pressure has improved systolic is currently 190s diastolic around 115. She is given metoprolol, amlodipine p.o. in ED. Patient denies any chest pain, headache is essentially asymptomatic from her severe hypertension/hypertensive emergency as well as acute renal failure. She reports she still has been making urine she denies use of any NSAIDs, recent antibiotic use or IV contrast exposure. Monitor admit for hypertensive emergency, NSTEMI, acute renal failure. - Past Medical/Surgical History -: Hypertension -: Psychosocial/ Personal History: Patient is employed as a inside solar sales consultant, lives at home with her baby lakshmi - Family History Father -: Kidney disease (ESRD) - Social History Smoking Status: Current some day smoker (Black and milds) Counseled patient to stop smoking for: less than 10 minutes Alcohol use: No CD- Drugs: No Caffeine use: Yes Place of Residence: Home <Jimy Dorantes - Last Filed: 08/10/22 02:30> Date of Service: 08/10/22 <Enzo Carty - Last Filed: 08/10/22 09:28> Review of Systems 10-point ROS is otherwise unremarkable Respiratory: Cough <Jimy Dorantes - Last Filed: 08/10/22 02:30> Physical Examination - Physical Exam General: Alert, In no apparent distress, Oriented x3 HEENT: Atraumatic, PERRLA, Mucous membr. moist/pink, EOMI, Sclerae nonicteric Neck: Supple, 2+ carotid pulse no bruit, No LAD, Without JVD or thyroid abnormality Respiratory: Clear to auscultation bilaterally, Normal air movement Cardiovascular: Regular rate/rhythm, Normal S1 S2 Capillary refill: <2 Seconds Gastrointestinal: Normal bowel sounds, No tenderness Musculoskeletal: No tenderness Integumentary: No rashes Neurological: Normal speech, Normal strength at 5/5 x4 extr, Normal tone, Normal affect - Studies Laboratory Data (last 24 hrs) 08/10/22 00:49: Uric Acid 9.8 H <Jimy Dorantes - Last Filed: 08/10/22 02:30> - Studies Laboratory Data (last 24 hrs) 08/10/22 00:49: Uric Acid 9.8 H <Enzo Carty - Last Filed: 08/10/22 09:28> Assessment and Plan - Plan Assessment: Acute renal failure Hypertensive emergency/NSTEMI Hyperglycemia Normocytic anemia Hypokalemia Plan: Acute renal failure: Nephrology consult in place, renal ultrasound ordered. Patient with elevated urine protein levels, uric acid. Bicarb on lab is normal as well as potassium being low suspect this is been going on for some time. Patient cannot recall the last time she had a blood work done or side doctor. She denies any recent NSAID, antibiotic or IV contrast exposures. She does report being told she had high blood pressure a couple years ago but was not on any medications suspect this is related to uncontrolled primary hypertension among other contributing conditions. Appreciate further input from nephrology continue gentle hydration this evening. Patient not in any distress currently she denies any chest pain, shortness of breath or headaches. Hypertensive emergency/NSTEMI: No STEMI criteria present on EKG. Patient denies any chest pain now or recently denies shortness of breath. Suspect this is commendation of demand ischemia from severe uncontrolled hypertension as well as decreased renal clearance. We will trend troponins, monitor on telemetry, given aspirin in ED as well as metoprolol. Cardiology consulted and echocardiogram ordered. Hyperglycemia: Glucose 149, will obtain A1c level. Normocytic anemia: Hemoglobin 7.9 patient denies any melena, hematochezia, hematemesis. Suspect patient has longstanding CKD and anemia of chronic disease. Will obtain additional labs in the morning to further evaluate anemia. Hypokalemia: Initial potassium 2.5 given 20 meq of IV potassium in ED, recheck chemistry this morning. Appreciate further input from nephrology. DVT PPX: Heparin Code status: Full Discharge Plan: Home Plan to discharge in: Greater than 2 days - Advance Directives Does patient have a Living Will: No Does patient have a Durable POA for Healthcare: No - Code Status/Comfort Care Code Status Assessed: Yes (Full code) Critical Care: No Time Spent Managing Pts Care (In Minutes): 70 <Jimy Dorantes - Last Filed: 08/10/22 02:30> Physician Review: Patient Assessed, Agree with Above Assessment and Plan <Enzo Carty - Last Filed: 08/10/22 09:28>
[2022-08-10 03:33] VITALS: BMI 28.3
[2022-08-10 04:43] LABS: Absolute Lymphocytes (CBC) 1.3 K/uL (0.7-4.9); Hematocrit 23.8 % (36.0-45.0); Lymphocytes % 12.2 % (15.3-44.8); MCV 82.2 fL (80-100); MPV 11.1 fL (7.6-11.3)
[2022-08-10 05:19] LABS: Bilirubin Total 0.9 mg/dL (0.2-1.0); Ferritin 128.9 ng/mL (8-388); Protein, Total 6.8 g/dL (6.4-8.2); Thyroid Stimulating Hormone 1.34 uIU/mL (0.360-3.740)
[2022-08-10 05:20] LABS: Troponin High Sensitivity 287.9 pg/mL (<58.9)
[2022-08-10 05:21] LABS: Potassium 2.6 mmol/L (3.5-5.1)
[2022-08-10 05:30] LABS: Blood Morphology Comment NOTED (NOT SEEN); Platelet Estimate DECR; Polychromasia SLIGHT; White Blood Cell Scan OK (OK)
[2022-08-10] MEDS ORDERED: KCL 20 MEQ/100 mL IVPB 200 ML IV ONE (05:41)
[2022-08-10] MEDS: KCL 20 MEQ/100 mL IVPB 20 MEQ/100 ML BAG IV SCH ×2 (05:44→09:18)
[2022-08-10] MEDS ORDERED: POTASSIUM CL 40 MEQ in NA CHLORIDE 0.9% 500 ML IV SCH (06:00)
--- NOTE | 2022-08-10 07:05 | RAD REPORT ---
EXAM DESCRIPTION: US - Renal Ultrasound-Complete - 08/10/2022 3:45 am CLINICAL HISTORY: ARF COMPARISON: Stone Protocol dated 08/10/2022 FINDINGS: The right kidney measures 11.3 x 3.2 x 4.6 cm. The left kidney measures 9.0 x 3.9 x 2.7 c m. Cortical thickness is normal. There is a significant increase in cortical echogenicity. No hydrone phrosis or suspicious renal mass. Bladder is contracted around a Fletcher catheter. IMPRESSION: No hydronephrosis or suspicious renal mass. Significant increase in cortical echogenicity indicating medical renal disease.
[2022-08-10] MEDS ORDERED: INFLUENZA VACCINE (for 6+ mo) 0.5 ML DOSE IMVAC ONE (08:00)
[2022-08-10] MEDS: METOPROLOL TAR 50 MG TAB PO SCH ×2 (08:14→20:27)
[2022-08-10] MEDS: ASPIRIN EC 81 MG TAB PO SCH (08:14)
[2022-08-10] MEDS ORDERED: HEPARIN 5000 UNIT/ML 1 ML VIAL SQ SCH (09:00)
[2022-08-10] MEDS: Ringers Lactate 1,000 ML IV SCH ×2 (09:18→17:36)
--- NOTE | 2022-08-10 13:59 | RAD REPORT ---
EXAM DESCRIPTION: RAD - Chest Single View - 08/10/2022 12:55 am CLINICAL HISTORY: The patient is 32 years old and is Female; kidney failure TECHNIQUE: Frontal view of the chest. COMPARISON: No relevant prior studies available. FINDINGS: Lungs: Prominent interstitial markings which may indicate mild interstitial edema. No co nsolidation. Pleural space: Unremarkable. No pneumothorax. Heart: Unremarkable. Mediastinum: Unremarkable. Bones/joints: Unremarkable. IMPRESSION: Prominent interstitial markings which may indicate mild interstitial edema. No consolida tion. Electronically signed by: Dank Dupont MD 08/10/2022 1:05 AM RECRUITING SCHEDULER Due to temporary technical issues with the PACS/Fluency reporting system, reports are being signed by the in house radiologists without review as a courtesy to insure prompt reporting. The interpreting radiologist is fully responsible for the content of the report.
--- NOTE | 2022-08-10 14:29 | RAD REPORT ---
EXAM DESCRIPTION: CT - Stone Protocol - 08/10/2022 6:54 am CLINICAL HISTORY: The patient is 32 years old and is Female; kidney failure TECHNIQUE: Axial computed tomography images of the abdomen and pelvis without intravenous contrast. Sagittal and coronal reformatted images were created and reviewed. This CT exam was performed usi ng one or more of the following dose reduction techniques: automated exposure control, adjustment o f the mA and/or kV according to patient size, and/or use of iterative reconstruction technique. COMPARISON: No relevant prior studies available. FINDINGS: Lung bases: Suggestion of groundglass changes in the lung bases bilaterally, but evaluat ion is limited by motion artifact. ABDOMEN: Liver: Unremarkable. Gallbladder and bile ducts: Unremarkable. No calcified stones. No ductal dilation. Pancreas: Unremarkable. No ductal dilation. Spleen: Unremarkable. No splenomegaly. Adrenals: Unremarkable. No mass. Kidneys and ureters: Unremarkable. No obstructing stones. No hydronephrosis. Stomach and bowel: Unremarkable. No obstruction. No mucosal thickening. PELVIS: Appendix: No findings to suggest acute appendicitis. Bladder: Fletcher catheter in the bladder. Reproductive: Unremarkable as visualized. ABDOMEN and PELVIS: Intraperitoneal space: Small amount of free fluid in the dependent pelvis. No free air. Bones/joints: No acute fracture. No dislocation. Soft tissues: Unremarkable. Vasculature: Unremarkable. No abdominal aortic aneurysm. Lymph nodes: Unremarkable. No enlarged lymph nodes. IMPRESSION: 1. No acute finding in the abdomen/pelvis. 2. Suggestion of groundglass changes in the lung bases bilaterally, but evaluation is limited by mo tion artifact. 3. Small amount of free fluid in the dependent pelvis. 4. Fletcher catheter in the bladder. Electronically signed by: Dank Dupont MD 08/10/2022 2:16 AM TRIMMER CLIMBER Due to temporary technical issues with the PACS/Fluency reporting system, reports are being signed by the in house radiologists without review as a courtesy to insure prompt reporting. The interpreting radiologist is fully responsible for the content of the report.
--- NOTE | 2022-08-10 15:28 | EKG ---
Test Date: 2022-08-10 Test Time: 00:35:53 Counselor At Law: RAO MEASUREMENT RESULTS: Intervals: Rate: 103 OR: 148 QRSD: 84 QT: 366 QTc: 479 [place]: P: 64 OR: 148 QRS: 23 T: 101 INTERPRETIVE STATEMENTS: Sinus tachycardia Possible Left atrial enlargement T wave abnormality, consider lateral ischemia Abnormal ECG No previous ECG available for comparison Electronically Signed On 08-10-22 15:27:25 EDGE STRIPPER by Elgin Coronado
[2022-08-10 18:35] LABS: Ferritin 124.3 ng/mL (8-388); Magnesium 2.2 mg/dL (1.8-2.4)
[2022-08-10 18:38] LABS: Protime INR 1.08
[2022-08-10 18:49] LABS: Potassium 2.8 mmol/L (3.5-5.1)
[2022-08-10 20:19] LABS: UR PROTEIN 238.8 mg/dL (<11.9); Urine Protein/Creatinine Ratio 2.74 ratio (<0.15)
[2022-08-10] MEDS: ATORVASTATIN 40 MG TAB PO SCH (20:27)
[2022-08-10] MEDS ORDERED: POTASSIUM CL SA 10 MEQ TAB PO ONE (22:20)
--- NOTE | 2022-08-10 22:21 | CON ---
Date of Consultation: 08/10/2022 Chief Complaint: Abnormal renal function test. History Of Present Illness: The patient is a 32-year-old woman with history of hypertension who has not been seen by her primary doctor for at least a few years. Last time she had lab work was done in 2019. She does not recall results. Patient had severe hypertension and she presented to the [facility] and blood pressure in the emergency room was 230/156. She received IV medication for hypertensive emergency. She is admitted to the hospital. Blood work showed severe elevation of BUN and creatini ne. BUN is 61 and creatinine level is 13.6. The patient denies uremic symptomatology. She denies m etallic taste in her mouth. Denies nausea, vomiting, or shortness of breath. Patient was found to h ave anemia. Hemoglobin level 7.9, WBC 7.6, hematocrit 22.4, platelet count 95,000. EKG showed non-S T elevation myocardial infarction. EKG did not confirm acute coronary syndrome although BNP was elev ated up to 52,323. Uric acid was 9.8 and CPK level 157. Urine showed 3+ protein, 2+ blood although there was no hematuria and no leukocyturia. Patient denies lower urinary tract symptoms. She denies renal colic. Renal ultrasound showed small kidneys and hyperechogenic kidneys consistent with sever e medical renal disease. Patient denies chest pain, headache. She had severe hypertension and hyper tensive emergency. There is some element of acute kidney injury, although patient has advanced chron ic kidney. Past Medical History: Hypertension, . Family History: Father with end-stage renal disease. Social History: Denies drug and has history of tobacco. Review of Systems: General: Denies fever or chills. Eyes: Denies vision changes. Ears, Nose, Mouth, and Throat: Denies sore throat or earache. Respiratory: Denies PND or orthopnea. Cardiovascular: Denies chest pain or palpitations. GI: Denies nausea or vomiting. : Denies dysuria or hematuria. All other systems reviewed and all are negative. Laboratory Data: Hemoglobin 7.8, platelet count 81,000, neutrophils 79.5%, lymphocytes 12.2%, and WB C 10.5%. Chemistry showed hemoglobin A1c less than 3.8, sodium 144, potassium 2.6, chloride 99, CO2 23, BUN 63, creatinine 14.1, and glucose 125. Iron 31, TIBC 237, transferrin 169, and saturation on transferrin 13. AST 26 and total bilirubin 0.9. Urinalysis: 2+ blood, nitrites negative, leukocyte esterase negative, ketones negative, RBC less than 5, WBC less than 5, specific gravity 1.015, and p H 6.0. 24 hour urine collection is pending. Impression And Plan: 1.The patient has severe kidney failure and this corresponds with advanced chronic kidney disease. Patient will start dialysis. I opened dialysis catheter for tomorrow to start dialysis. Patient agr eed to start dialysis. Patient has family history of end-stage renal disease, her father was treated by end-stage renal disease. 2.Patient was found to have severe hypokalemia. Workup was ordered with 24 hours aldosterone as wel l as serum renin and aldosterone. The patient will have renal artery Doppler as well. 3.Lab work is ordered to rule out vasculitis and secondary glomerulonephritis. Plan is to check hep atitis C and Human Immunodeficiency Virus. 4.Hypertension. Continue blood pressure medication. 5.Anemia. Iron study is pending. Patient may benefit from MUNA when blood pressure is controlled. EB/MODL Voice ID: [id number] Report ID: [id number]
[2022-08-11 02:50] LABS: Absolute Lymphocytes (CBC) 1.6 K/uL (0.7-4.9); Hematocrit 23.4 % (36.0-45.0); Lymphocytes % 20.6 % (15.3-44.8); MCV 81.9 fL (80-100); MPV 9.9 fL (7.6-11.3); RBC Red Blood Cell Count 2.86 M/uL (3.86-4.86)
[2022-08-11 03:09] LABS: Albumin 2.8 g/dL (3.4-5.0); Bilirubin Total 0.7 mg/dL (0.2-1.0); Phosphorus 4.4 mg/dL (2.5-4.9); Protein, Total 6.7 g/dL (6.4-8.2)
[2022-08-11 03:12] LABS: Potassium 2.8 mmol/L (3.5-5.1)
[2022-08-11] MEDS ORDERED: POTASSIUM 25 MEQ EFFERV TAB PO ONE (07:24)
[2022-08-11] MEDS: ASPIRIN EC 81 MG TAB PO SCH (07:27)
[2022-08-11] MEDS: METOPROLOL TAR 50 MG TAB PO SCH ×2 (07:27→20:09)
--- NOTE | 2022-08-11 07:32 | P.PN ---
Subjective Date of Service: 08/11/22 Chief Complaint: Acute renal failure, NSTEMI Subjective Pt with no established outpatient medical care, presented for URTI symptoms , found to have CR of 14, K 2.8 ,SBP in 230, denied NSAID intake Today No overnight events plan to start HD today F/U serology W/u Op dialysis arrangement Physical exam General: AAOx3, NAD HEET: no changes in vision, moist mucous membrane neck supple, no elevated JVD CHEST; CTAB, no wheezes or rales HEART : RRR. 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
[2022-08-11] MEDS ORDERED: KCL 20 MEQ/100 mL IVPB 20 MEQ/100 ML BAG IV SCH (08:00)
[2022-08-11] MEDS: SOD FERRIC GLUC COMPLX/SUCROSE 125 MG in NA CHLORIDE 0.9% 100 ML IV SCH (08:51)
[2022-08-11] MEDS: HYDRALAZINE HCL 20 MG/ML VIAL IV PRN ×3 (08:51→21:28)
[2022-08-11] MEDS ORDERED: NS 0.9% VIAL 20 ML ONE (10:34)
[2022-08-11] MEDS: HEPARIN 5000 UNIT/ML 1 ML VIAL ONE ×3 (10:35→12:08)
[2022-08-11] MEDS ORDERED: NA CHLORIDE 0.9% 0 ML IV ONE (10:35)
[2022-08-11] MEDS: LIDOCAINE 1% MPF 30 ML VIAL ONE ×2 (10:35→12:06)
[2022-08-11] MEDS ORDERED: NA CHLORIDE 0.9% 100 ML IV ONE (10:36)
--- NOTE | 2022-08-11 11:00 | RAD REPORT ---
EXAM DESCRIPTION: US - Abdomen Pelvis Scan US - 08/11/2022 5:42 am CLINICAL HISTORY: Acute renal failure COMPARISON: None FINDINGS: The right kidney measures 10 centimeters with an increased echotexture. The left kidney measures 9 centimeters with an increased echotexture. No hydronephrosis. Fletcher catheter is present within a collapsed bladder. The velocity right renal artery 83 centimeters/second. The velocity left renal artery 111 centimeters/second Renal artery/aorta ratio is within normal limits IMPRESSION: No sonographic evidence of renal arterial stenosis Increased renal echotexture consistent with parenchymal disease
[2022-08-11] MEDS: CEFAZOLIN SODIUM 1 GM/VIAL ONE ×2 (11:14→11:35)
[2022-08-11] MEDS ORDERED: propofoL 200 MG/20 ML VIAL IV ONE (11:16)
[2022-08-11] MEDS ORDERED: LIDOCAINE 2% MPF 5 ML VIAL ONE (11:16)
[2022-08-11] MEDS ORDERED: MIDAZOLAM HCL 2 MG/2 ML INJ ONE (11:16)
[2022-08-11] MEDS ORDERED: FENTANYL CITR 100 MCG/2 ML ONE (11:16)
--- NOTE | 2022-08-11 11:30 | P.CNS ---
Date of Consult: 08/11/22 Reason for consult: Patient needs urgent dialysis History of present illness: 32-year-old female was admitted with acute renal failure and hypertensive emergency. Patient was worked up and found to have acute renal failure requiring dialysis. Patient is awake and alert with no complaints at this time. Patient denies any nausea, vomiting, diarrhea or constipation. Patient denies chest pain, fever or chills. Review of systems: Otherwise unremarkable Past medical history: Hypertension acute renal failure Past surgical history: Allergies: None Social history: Patient does smoke and has been counseled, denies drinking alcohol Family history: Kidney disease Vital signs: Stable, afebrile Physical exam: Awake alert oriented x3 Head and neck exam: Cranial nerves II through XII grossly within normal limits, no neck masses, no JVD, throat clear and neck supple Chest: Clear Heart: S1-S2 Abdomen: Soft Extremity: Neurovascular intact, nontender Neuro: Nonfocal Diagnostic data: Potassium of 2.8 (being replaced). Platelets between 80 and 90,000. Assessment: Acute renal failure Plan/recommendation: Placement of a tunneled Tesio catheter. Patient understands risk, benefits and alternatives and agrees to procedure. CC:
[2022-08-11] MEDS ORDERED: ONDANSETRON 4 MG/2 ML VIAL ONE (11:54)
--- NOTE | 2022-08-11 12:21 | P.PN ---
Subjective Date of Service: 08/11/22 Chief Complaint: Acute renal failure, NSTEMI No acute events overnight. She reports no symptoms this morning. She has been NPO past midnight in anticipation for dialysis catheter placement today. Review of Systems 10-point ROS is otherwise unremarkable Physical Examination - Vital Signs Temperature: 98.5 F Blood Pressure: 192/121 Pulse: 90 Respirations: 12 Pulse Ox (%): 96 - Physical Exam General: Alert, In no apparent distress, Oriented x3 HEENT: Atraumatic, PERRLA, Mucous membr. moist/pink, EOMI, Sclerae nonicteric Neck: Supple, JVD not distended Respiratory: Clear to auscultation bilaterally, Normal air movement Cardiovascular: No edema, Regular rate/rhythm, Normal S1 S2, No gallops, No rubs, No murmurs Capillary refill: <2 Seconds Gastrointestinal: Normal bowel sounds, Soft and benign, Non-distended, No tenderness, No rebound, No guarding Musculoskeletal: No clubbing Integumentary: No rashes Neurological: Normal speech, Cranial nerves 3-12 intact, Normal affect Assessment And Plan - Plan # Possible Acute Kidney Injury on suspected Chronic Kidney Disease Stage V # Suspect Anemia of Chronic Kidney Disease - Nephrology consulted - recommendations appreciated - Will likely require hemodialysis - General Surgery consulted for tunneled Tesio catheter placement - Creatinine = 14.1 -> 14.7 -> 14.8 (baseline creatinine unknown) - Urinalysis = 2+ blood, 3+ protein - Renal ultrasound = "no hydronephrosis or suspicious renal mass. Significant increase in cortical echogenicity indicating medical renal disease." - Renal artery Doppler = "no sonographic evidence of renal arterial stenosis. Increased renal echotexture consistent with parenchymal disease." - Monitor creatinine and urine output - Renally dose medications # Hypertensive Emergency # Non-ST Segment Elevation Myocardial Infarction due to above - Consulted Cardiology - recommendations appreciated - EKG reportedly without STEMI criteria - Troponin trend: 307.5 -> 287.9 -> 242.8 - Transthoracic echocardiogram ordered - Continue home aspirin, atorvastatin, metoprolol - PRN hydralazine for SBP > 160 mmHg # Hypokalemia - Replace as needed Enzo Carty M.D.
--- NOTE | 2022-08-11 12:31 | P.OP ---
Date of Service: 08/11/22 Preop diagnosis: Acute renal failure Postop diagnosis: Same Procedure performed: Right IJ Tesio catheter placement and interpretation of intraoperative fluoroscopy Surgeon: Indra Villarreal MD Bull Driver: None Estimated blood loss: Minimal Specimen: None Findings: Normal anatomy Anesthesia: General none Complications: Drains: None Fluids and blood products: Nonapplicable Disposition: Recovery room Operative note: Patient brought to the OR and placed in the supine position. General anesthesia begun. Patient prepped and draped in the usual sterile fashion. Lidocaine 1% infiltrated locally. 18-gauge needle used to access the right IJ vein. Guidewire passed and position confirmed with fluoroscopy. A counterincision made on the right anterior chest. Tunneling device used to tunnel the catheter between the 2 wounds. Right IJ vein dilated. Seldinger technique used. Tip of the catheter placed in the SVC under fluoroscopy. Catheter flushed with heparin and packed with heparin with good blood flow. 3-0 chromic used to approximate subcutaneous tissue in close skin. 3-0 nylon used to secure the tube to the chest wall. Sterile dressing applied. Patient awakened and taken to recovery room in good general condition. Chest x-ray has been ordered. CC:
--- NOTE | 2022-08-11 12:57 | RAD REPORT ---
EXAM DESCRIPTION: RAD - Chest Single View - 08/11/2022 12:44 pm CLINICAL HISTORY: Status post Tesio catheter placement COMPARISON: Chest Single View dated 08/10/2022; Stone Protocol dated 08/10/2022 FINDINGS: Lines: Right IJ approach dialysis catheter with tip overlying the SVC. Lungs: Pulmonary edema. Pleural: Small effusions difficult to exclude. Cardiac: Cardiomegaly. Mediastinum: Within normal limits. Bones: No acute fractures. Other: None IMPRESSION: Right IJ approach dialysis catheter with tip overlying the SVC. No pneumothorax. Pulmona ry edema.
[2022-08-11] MEDS ORDERED: DESMOPRESSIN IV ONE (13:30)
[2022-08-11] MEDS ORDERED: NA CHLORIDE 0.9% IV ONE (13:30)
--- NOTE | 2022-08-11 14:03 | ECHO ---
HEIGHT: 5 ft 1 in WEIGHT: 150 lb 0.04 oz DATE OF STUDY: 08/11/[address]: Jimy Dorantes NP 2-DIMENSIONAL: YES M.MODE: YES DOPPLER: YES COLOR FLOW: YES TDS: NO PORTABLE: YES DEFINITY: NO BUBBLE STUDY: NO DIAGNOSIS: NSTEMI CARDIAC HISTORY: CATHERIZATION: SURGERY: PROSTHETIC VALVE: PACEMAKER: MEASUREMENTS (cm) DIASTOLIC (NORMALS) SYSTOLIC (NORMALS) IVSd 1.2 (0.6-1.2) LA Diam 3.8 (1.9-4.0) LVEF 56% LVIDd 4.9 (3.5-5.7) LVIDs 3.5 (2.0-3.5) %FS 29% LVPWd 1.5 (0.6-1.2) Ao Diam 2.7 (2.0-3.7) 2 DIMENSIONAL ASSESSMENT: RIGHT ATRIUM: NORMAL LEFT ATRIUM: NORMAL RIGHT VENTRICLE: NORMAL LEFT VENTRICLE: NORMAL TRICUSPID VALVE: MITRAL VALVE: PULMONIC VALVE: NORMAL AORTIC VALVE: PERICARDIAL EFFUSION: TRACE AORTIC ROOT: NORMAL LEFT VENTRICULAR WALL MOTION: NORMAL DOPPLER/COLOR FLOW: SEE BELOW. COMMENTS: 1. NORMAL LEFT VENTRICULAR EJECTION FRACTION 55-60% WITH NORMAL WALL MOTION. 2. MODERATE DIASTOLIC DYSFUNCTION. 3. MODERATE TRICUSPID REGURGITATION. 4. MILD AORTIC AND MITRAL REGURGITATION. 5. MODERATE PULMONARY HYPERTENSION WITH RIGHT VENTRICULAR SYSTOLIC PRESSURE OF 50-55 mmHg. TECHNOLOGIST: Yehuda GALINDO
[2022-08-11] MEDS: HYDROCODONE/APAP 5/325 MG TAB PO PRN ×2 (14:23→20:08)
[2022-08-11] MEDS ORDERED: MANNITOL 25% 12.5 GM/50 ML VIAL IV PRN (15:26)
--- NOTE | 2022-08-11 16:57 | RAD REPORT ---
EXAM DESCRIPTION: RAD - Fluoroscopy <1 Hour - 08/11/2022 4:21 pm CLINICAL HISTORY: TESSIO COMPARISON: No comparisons FINDINGS/IMPRESSION: Two intraoperative fluoroscopic images were submitted. This demonstrates placem ent of a right IJ approach dialysis catheter. The tip terminates overlying the distal SVC. Fluoro time: 0 minutes Cumulative dose: 0.655 mGy
[2022-08-11] MEDS ORDERED: INFLUENZA VACCINE (for 6+ mo) 0.5 ML DOSE IMVAC ONE (18:00)
[2022-08-11 18:19] LABS: UR PROTEIN 205.8 mg/dL (<11.9)
[2022-08-11] MEDS: EPOETIN 4,000 UNIT/ML VIAL IV SCH (19:00)
[2022-08-11] MEDS: ATORVASTATIN 40 MG TAB PO SCH (20:09)
[2022-08-12] MEDS: HYDROCODONE/APAP 5/325 MG TAB PO PRN (00:56)
[2022-08-12 05:25] LABS: Lymphocytes % 11.4 % (15.3-44.8); MCV 82.6 fL (80-100); MPV 10.4 fL (7.6-11.3); RBC Red Blood Cell Count 2.54 M/uL (3.86-4.86)
[2022-08-12 06:07] LABS: Albumin 2.7 g/dL (3.4-5.0); Bilirubin Total 0.8 mg/dL (0.2-1.0); Potassium 3.2 mmol/L (3.5-5.1); Protein, Total 6.3 g/dL (6.4-8.2)
[2022-08-12] MEDS: ASPIRIN EC 81 MG TAB PO SCH (08:54)
[2022-08-12] MEDS: NIFEDIPINE XL 60 MG TABLET PO SCH (08:54)
[2022-08-12] MEDS: METOPROLOL TAR 50 MG TAB PO SCH ×2 (08:54→20:41)
[2022-08-12] MEDS: SOD FERRIC GLUC COMPLX/SUCROSE 125 MG in NA CHLORIDE 0.9% 100 ML IV SCH (09:09)
[2022-08-12] MEDS: ONDANSETRON 4 MG/2 ML VIAL IV PRN (11:36)
[2022-08-12] MEDS: HYDRALAZINE HCL 20 MG/ML VIAL IV PRN (11:44)
[2022-08-12] MEDS: EPOETIN 4,000 UNIT/ML VIAL IV SCH (12:30)
--- NOTE | 2022-08-12 14:47 | P.PN ---
Subjective Date of Service: 08/12/22 Chief Complaint: Acute renal failure, NSTEMI Subjective: No new changes Physical Examination - Vital Signs Temperature: 98.3 F Blood Pressure: 199/129 Pulse: 99 Respirations: 20 Pulse Ox (%): 98 - Physical Exam General: In no apparent distress HEENT: Atraumatic, Normocephalic Neck: Supple, JVD not distended Respiratory: Clear to auscultation bilaterally Cardiovascular: No rubs, No murmurs Gastrointestinal: Soft and benign, No guarding Musculoskeletal: No clubbing Integumentary: No warmth Neurological: Normal speech, Normal tone Urinary: Other (No bladder distention) External genitalia: Deferred Rectal: Deferred Assessment And Plan - Plan # JUANITO on CKD vs progressive CDK V/ESRD HD started on 08/11 HD received today. Next HD on 08/14 Renal diet US: no hydronephrosis but w/ asymmetric kidneys. Doppler showed no e/o JAVIER but sensitivity not very high for JAVIER w/ doppler Dc coleman Kidney biopsy when BP controlled # Accelerated Htn Hx of resistant Htn. Has Htn since 18 y/o. DDx include Conn's syndrome & JAVIER, aggravated by renal failure/CKD. Pheochromocytoma less likely. BNP super elevated F/u PA/PRA, plasma fractionated metanephrines + catecholamines Given asymmetric kidneys, hypokalemia, & though neg renal doppler US for JAVIER, unable to r/o JAVIER at this point. Hold off on CTA renal. Start Lisinopril 20 mg po daily, optimize dose. Given premature Htn & -dutch descent, may add dannie next, after ACEI optimized, for ? Conn's. # Hypokalemia HD & Lisinopril as above # Vit D deficiency Start D3 5T IU po daily # Secondary hyperPTH iPTH sig elevated at 306. 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
[2022-08-12] MEDS: lisinopriL 20 MG TAB PO SCH (15:50)
--- NOTE | 2022-08-12 16:19 | P.PN ---
Subjective Date of Service: 08/12/22 Chief Complaint: Acute renal failure, NSTEMI No acute events overnight. She reports that she feels well and has no symptoms this morning. Dialysis catheter was placed yesterday. Plan for hemodialysis today. Review of Systems 10-point ROS is otherwise unremarkable Physical Examination - Vital Signs Temperature: 98.3 F Blood Pressure: 135/72 Pulse: 98 Respirations: 20 Pulse Ox (%): 98 Assessment And Plan - Plan - Physical Exam General: Alert, In no apparent distress, Oriented x3 HEENT: Atraumatic, PERRLA, Mucous membr. moist/pink, EOMI, Sclerae nonicteric Neck: Supple, JVD not distended, RIJ Tesio catheter in place Respiratory: Clear to auscultation bilaterally, Normal air movement Cardiovascular: No edema, Regular rate/rhythm, Normal S1 S2, No gallops, No rubs, No murmurs Capillary refill: <2 Seconds Gastrointestinal: Normal bowel sounds, Soft and benign, Non-distended, No tenderness, No rebound, No guarding Musculoskeletal: No clubbing Integumentary: No rashes Neurological: Normal speech, Cranial nerves 3-12 intact, Normal affect # Suspected Chronic Kidney Disease Stage V # Suspect Anemia of Chronic Kidney Disease - Nephrology consulted - recommendations appreciated - Plan for hemodialysis today - S/P RIJ tunneled Tesio catheter placement on 08/11/2022 - Creatinine = 14.1 -> 14.7 -> 14.8 (baseline creatinine unknown) - Urinalysis = 2+ blood, 3+ protein - Renal ultrasound = "no hydronephrosis or suspicious renal mass. Significant increase in cortical echogenicity indicating medical renal disease." - Renal artery Doppler = "no sonographic evidence of renal arterial stenosis. Increased renal echotexture consistent with parenchymal disease." - Monitor creatinine and urine output - Renally dose medications - Case management consulted for assistance with finding a dialysis chair # Hypertensive Emergency # Non-ST Segment Elevation Myocardial Infarction due to above # Moderate Pulmonary Hypertension - Consulted Cardiology - recommendations appreciated - EKG reportedly without STEMI criteria - Troponin trend: 307.5 -> 287.9 -> 242.8 - Transthoracic echocardiogram = "1. normal left ventricular ejection fraction 55-60% with normal wall motion. 2. moderate diastolic dysfunction. 3. moderate tricuspid regurgitation. 4. mild aortic and mitral regurgitation. 5. moderate pulmonary hypertension with right ventricular systolic pressure of 50-55 mmHg. " - Continue home aspirin, atorvastatin, metoprolol - PRN hydralazine for SBP > 160 mmHg # Hypokalemia - Replace as needed Enzo Carty M.D.
[2022-08-12] MEDS: ATORVASTATIN 40 MG TAB PO SCH (20:40)
[2022-08-13] MEDS: LABETALOL 20 MG/4ML SYRINGE IV PRN ×3 (00:28→16:38)
[2022-08-13] MEDS: ONDANSETRON 4 MG/2 ML VIAL IV PRN (00:36)
[2022-08-13 04:35] LABS: Absolute Lymphocytes (CBC) 1.8 K/uL (0.7-4.9); Hematocrit 22.3 % (36.0-45.0); Lymphocytes % 16.9 % (15.3-44.8); MCV 84.5 fL (80-100); MPV 9.8 fL (7.6-11.3); RBC Red Blood Cell Count 2.64 M/uL (3.86-4.86)
[2022-08-13 05:08] LABS: Potassium 3.1 mmol/L (3.5-5.1)
[2022-08-13] MEDS: VITAMIN D 5,000 UNIT CAP PO SCH (08:45)
[2022-08-13] MEDS: ASPIRIN EC 81 MG TAB PO SCH (08:46)
[2022-08-13] MEDS: NIFEDIPINE XL 60 MG TABLET PO SCH (08:46)
[2022-08-13] MEDS: CALCITROL 0.25 MCG CAP PO SCH (08:47)
[2022-08-13] MEDS: METOPROLOL TAR 50 MG TAB PO SCH ×2 (08:47→20:44)
[2022-08-13] MEDS: lisinopriL 20 MG TAB PO SCH (08:47)
[2022-08-13] MEDS: SOD FERRIC GLUC COMPLX/SUCROSE 125 MG in NA CHLORIDE 0.9% 100 ML IV SCH (08:48)
[2022-08-13] MEDS ORDERED: AMLODIPINE 10 MG TAB PO SCH (09:00)
--- NOTE | 2022-08-13 13:13 | P.PN ---
Subjective Date of Service: 08/13/22 Chief Complaint: Acute renal failure, NSTEMI Subjective: No new changes Physical Examination - Vital Signs Temperature: 98.6 F Blood Pressure: 165/98 Pulse: 89 Respirations: 16 Pulse Ox (%): 94 - Physical Exam General: In no apparent distress HEENT: Atraumatic, Normocephalic Neck: Supple, JVD not distended Respiratory: Clear to auscultation bilaterally Cardiovascular: No rubs, No murmurs Gastrointestinal: Soft and benign, No guarding Musculoskeletal: No clubbing Integumentary: No warmth Neurological: Normal speech, Normal tone Urinary: Other (No bladder distention) External genitalia: Deferred Rectal: Deferred Assessment And Plan - Plan # JUANITO on CKD vs progressive CDK V/ESRD HD started on 08/11 HD received yesterday. Next HD tomorrow 08/14 Renal diet US: no hydronephrosis but w/ asymmetric kidneys. Doppler showed no e/o JAVIER but sensitivity not very high for JAVIER w/ doppler Lasix 40 mg po bid Kidney biopsy when BP controlled # Accelerated Htn Hx of resistant Htn. Has Htn since 18 y/o. DDx include Conn's syndrome & JAVIER, aggravated by renal failure/CKD. Pheochromocytoma less likely. BNP super elevated F/u PA/PRA, plasma fractionated metanephrines + catecholamines Given asymmetric kidneys, hypokalemia, & though neg renal doppler US for JAVIER, unable to r/o JAVIER at this point. Hold off on CTA renal. Increase Lisinopril to 40 mg po daily, optimize dose. Given premature Htn & -prydeinig descent, may add dannie next, after ACEI optimized, for ? Conn's. # Hypokalemia HD & Lisinopril as above # Vit D deficiency Start D3 5T IU po daily # Secondary hyperPTH iPTH sig elevated at 306. 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
[2022-08-13] MEDS ORDERED: lisinopriL 20 MG TAB PO STA (13:54)
--- NOTE | 2022-08-13 14:01 | P.PN ---
Subjective Date of Service: 08/13/22 Chief Complaint: Acute renal failure, NSTEMI No acute events overnight. She reports no concerns this morning. She states that dialysis has been going well. She is waiting for a dialysis chair. She states that she is excited for family to come visit her for Thanksgiving today. Review of Systems 10-point ROS is otherwise unremarkable Physical Examination - Vital Signs Temperature: 98.3 F Blood Pressure: 156/94 Pulse: 86 Respirations: 16 Pulse Ox (%): 93 Assessment And Plan - Plan - Physical Exam General: Alert, In no apparent distress, Oriented x3 HEENT: Atraumatic, PERRLA, Mucous membr. moist/pink, EOMI, Sclerae nonicteric Neck: Supple, JVD not distended, RIJ Tesio catheter in place Respiratory: Clear to auscultation bilaterally, Normal air movement Cardiovascular: No edema, Regular rate/rhythm, Normal S1 S2, No gallops, No rubs, No murmurs Capillary refill: <2 Seconds Gastrointestinal: Normal bowel sounds, Soft and benign, Non-distended, No tenderness, No rebound, No guarding Musculoskeletal: No clubbing Integumentary: No rashes Neurological: Normal speech, Cranial nerves 3-12 intact, Normal affect # Suspected Chronic Kidney Disease Stage V now with progression to End-Stage Renal Disease on Intermittent Hemodialysis # Suspect Anemia of Chronic Kidney Disease - Nephrology consulted - recommendations appreciated - S/P RIJ tunneled Tesio catheter placement on 08/11/2022 - Creatinine = 14.1 -> 14.7 -> 14.8 (baseline creatinine unknown) - Urinalysis = 2+ blood, 3+ protein - Renal ultrasound = "no hydronephrosis or suspicious renal mass. Significant increase in cortical echogenicity indicating medical renal disease." - Renal artery Doppler = "no sonographic evidence of renal arterial stenosis. Increased renal echotexture consistent with parenchymal disease." - Monitor creatinine and urine output - Renally dose medications - Case management consulted for assistance with finding a dialysis chair # Hypertensive Emergency # Non-ST Segment Elevation Myocardial Infarction due to above # Moderate Pulmonary Hypertension - Consulted Cardiology - recommendations appreciated - EKG reportedly without STEMI criteria - Troponin trend: 307.5 -> 287.9 -> 242.8 - Transthoracic echocardiogram = "1. normal left ventricular ejection fraction 55-60% with normal wall motion. 2. moderate diastolic dysfunction. 3. moderate tricuspid regurgitation. 4. mild aortic and mitral regurgitation. 5. moderate pulmonary hypertension with right ventricular systolic pressure of 50-55 mmHg. " - Continue home aspirin, atorvastatin, metoprolol - PRN hydralazine for SBP > 160 mmHg # Hypokalemia - Replace as needed Doing well. No acute concerns. Waiting for dialysis chair. Unlikely to happen today due to holiday. Enzo Carty M.D.
[2022-08-13] MEDS ORDERED: POTASSIUM CL SA 10 MEQ TAB PO ONE (16:42)
[2022-08-13] MEDS: ATORVASTATIN 40 MG TAB PO SCH (20:44)
[2022-08-14] MEDS: HYDRALAZINE HCL 20 MG/ML VIAL IV PRN (00:19)
[2022-08-14] MEDS: SPIRONOLACTONE 25 MG TABLET PO SCH ×3 (05:25→20:38)
[2022-08-14 05:40] LABS: Potassium 2.7 mmol/L (3.5-5.1)
[2022-08-14] MEDS: VITAMIN D 5,000 UNIT CAP PO SCH (08:21)
[2022-08-14] MEDS: lisinopriL 20 MG TAB PO SCH (08:21)
[2022-08-14] MEDS: METOPROLOL TAR 50 MG TAB PO SCH (08:21)
[2022-08-14] MEDS: CALCITROL 0.25 MCG CAP PO SCH (08:21)
[2022-08-14] MEDS: NIFEDIPINE XL 60 MG TABLET PO SCH (08:21)
[2022-08-14] MEDS: ASPIRIN EC 81 MG TAB PO SCH (08:22)
[2022-08-14] MEDS: FUROSEMIDE 40 MG TABLET PO SCH ×2 (08:22→15:53)
[2022-08-14] MEDS: SOD FERRIC GLUC COMPLX/SUCROSE 125 MG in NA CHLORIDE 0.9% 100 ML IV SCH (09:00)
[2022-08-14] MEDS: EPOETIN 4,000 UNIT/ML VIAL IV SCH (11:45)
--- NOTE | 2022-08-14 14:43 | P.PN ---
Subjective Date of Service: 08/14/22 Chief Complaint: Acute renal failure, NSTEMI Subjective: No new changes Physical Examination - Vital Signs Temperature: 98.5 F Blood Pressure: 186/116 Pulse: 100 Respirations: 16 Pulse Ox (%): 99 - Physical Exam General: In no apparent distress HEENT: Atraumatic, Normocephalic Neck: Supple Respiratory: Clear to auscultation bilaterally Cardiovascular: No rubs, No murmurs Gastrointestinal: Soft and benign, No guarding Musculoskeletal: No clubbing Integumentary: No warmth Neurological: Normal speech, Normal tone Urinary: Other (No bladder distention) External genitalia: Deferred Rectal: Deferred Assessment And Plan - Plan # JUANITO on CKD vs progressive CDK V/ESRD HD started on 08/11 HD received yesterday. Next HD tomorrow 08/14 Renal diet US: no hydronephrosis but w/ asymmetric kidneys. Doppler showed no e/o JAVIER but sensitivity not very high for JAVIER w/ doppler Lasix 40 mg po bid Kidney biopsy when BP controlled # Accelerated Htn Hx of resistant Htn. Has Htn since 18 y/o. DDx include Conn's syndrome & JAVIER, aggravated by renal failure/CKD. Pheochromocytoma less likely. BNP remains above goal F/u PA/PRA, plasma fractionated metanephrines + catecholamines Given asymmetric kidneys, hypokalemia, & though neg renal doppler US for JAVIER, unable to r/o JAVIER at this point. Hold off on CTA renal. Cont Lisinopril 40 mg po daily. Given premature Htn & -bruneian descent, Conn's possible. Start dannie 50 mg po bid Switch Metroprolol to Carvedilol 12.5 mg po daily Cont Nifedipine same dose # Hypokalemia HD & Lisinopril as above # Vit D deficiency Started on D3 5T IU po daily # Secondary hyperPTH iPTH sig elevated at 306. 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
[2022-08-14] MEDS ORDERED: carvediloL 12.5 MG TAB PO STA (15:37)
--- NOTE | 2022-08-14 17:45 | P.PN ---
Subjective Date of Service: 08/14/22 Chief Complaint: Acute renal failure, NSTEMI No acute events overnight. She is sitting up comfortably watching television. Plan for dialysis today. Disposition is pending placement for dialysis chair. Review of Systems 10-point ROS is otherwise unremarkable Physical Examination - Vital Signs Temperature: 98.7 F Blood Pressure: 176/115 Pulse: 98 Respirations: 19 Pulse Ox (%): 95 Assessment And Plan - Plan - Physical Exam General: Alert, In no apparent distress, Oriented x3 HEENT: Atraumatic, PERRLA, Mucous membr. moist/pink, EOMI, Sclerae nonicteric Neck: Supple, JVD not distended, RIJ Tesio catheter in place Respiratory: Clear to auscultation bilaterally, Normal air movement Cardiovascular: No edema, Regular rate/rhythm, Normal S1 S2, No gallops, No rubs, No murmurs Capillary refill: <2 Seconds Gastrointestinal: Normal bowel sounds, Soft and benign, Non-distended, No tenderness, No rebound, No guarding Musculoskeletal: No clubbing Integumentary: No rashes Neurological: Normal speech, Cranial nerves 3-12 intact, Normal affect # Suspected Chronic Kidney Disease Stage V now with progression to End-Stage Renal Disease on Intermittent Hemodialysis # Suspect Anemia of Chronic Kidney Disease - Nephrology consulted - recommendations appreciated - S/P RIJ tunneled Tesio catheter placement on 08/11/2022 - Creatinine = 14.1 -> 14.7 -> 14.8 (baseline creatinine unknown) - Urinalysis = 2+ blood, 3+ protein - Renal ultrasound = "no hydronephrosis or suspicious renal mass. Significant increase in cortical echogenicity indicating medical renal disease." - Renal artery Doppler = "no sonographic evidence of renal arterial stenosis. Increased renal echotexture consistent with parenchymal disease." - Monitor creatinine and urine output - Renally dose medications - Case management consulted for assistance with finding a dialysis chair # Hypertensive Emergency # Non-ST Segment Elevation Myocardial Infarction due to above # Moderate Pulmonary Hypertension - Consulted Cardiology - recommendations appreciated - EKG reportedly without STEMI criteria - Troponin trend: 307.5 -> 287.9 -> 242.8 - Transthoracic echocardiogram = "1. normal left ventricular ejection fraction 55-60% with normal wall motion. 2. moderate diastolic dysfunction. 3. moderate tricuspid regurgitation. 4. mild aortic and mitral regurgitation. 5. moderate pulmonary hypertension with right ventricular systolic pressure of 50-55 mmHg. " - Continue home aspirin, atorvastatin, metoprolol - PRN hydralazine for SBP > 160 mmHg # Hypokalemia - Replace as needed Doing well. No acute concerns today. Waiting for dialysis chair. Unlikely to happen over the . Enoz Carty M.D.
[2022-08-14] MEDS: carvediloL 12.5 MG TAB PO SCH (18:13)
[2022-08-14] MEDS: ATORVASTATIN 40 MG TAB PO SCH (20:38)
[2022-08-15 02:14] LABS: HBsAG Nonreactive (Nonreactive)
[2022-08-15 04:08] LABS: Potassium 3.3 mmol/L (3.5-5.1)
[2022-08-15] MEDS: carvediloL 12.5 MG TAB PO SCH ×2 (06:50→17:10)
[2022-08-15] MEDS: VITAMIN D 5,000 UNIT CAP PO SCH (08:33)
[2022-08-15] MEDS: NIFEDIPINE XL 60 MG TABLET PO SCH (08:33)
[2022-08-15] MEDS: FUROSEMIDE 40 MG TABLET PO SCH ×2 (08:33→16:27)
[2022-08-15] MEDS: lisinopriL 20 MG TAB PO SCH (08:33)
[2022-08-15] MEDS: CALCITROL 0.25 MCG CAP PO SCH (08:33)
[2022-08-15] MEDS: ASPIRIN EC 81 MG TAB PO SCH (08:33)
[2022-08-15] MEDS: SPIRONOLACTONE 25 MG TABLET PO SCH ×2 (08:33→21:22)
[2022-08-15] MEDS: SOD FERRIC GLUC COMPLX/SUCROSE 125 MG in NA CHLORIDE 0.9% 100 ML IV SCH (09:30)
--- NOTE | 2022-08-15 13:29 | P.PN ---
Subjective Date of Service: 08/15/22 Chief Complaint: Acute renal failure, NSTEMI No acute events overnight. She is sitting up comfortably eating breakfast. She endorses no concerns today. Disposition is pending placement for dialysis chair. Unlikely to happen over the weekend. Review of Systems 10-point ROS is otherwise unremarkable Physical Examination - Vital Signs Temperature: 98.8 F Blood Pressure: 159/107 Pulse: 97 Respirations: 16 Pulse Ox (%): 94 Assessment And Plan - Plan - Physical Exam General: Alert, In no apparent distress, Oriented x3 HEENT: Atraumatic, Sclerae nonicteric Neck: Supple, JVD not distended, RIJ Tesio catheter in place Respiratory: Clear to auscultation bilaterally, Normal air movement Cardiovascular: No edema, Regular rate/rhythm, Normal S1 S2, No gallops, No rubs, No murmurs Gastrointestinal: Normal bowel sounds, Soft and benign, Non-distended, No tenderness, No rebound, No guarding Musculoskeletal: No clubbing Integumentary: No rashes Neurological: Normal speech, Cranial nerves 3-12 intact, Normal affect # Suspected Chronic Kidney Disease Stage V now with progression to End-Stage Renal Disease on Intermittent Hemodialysis # Suspect Anemia of Chronic Kidney Disease - Nephrology consulted - recommendations appreciated - S/P RIJ tunneled Tesio catheter placement on 08/11/2022 - Creatinine = 14.1 -> 14.7 -> 14.8 (baseline creatinine unknown) - Urinalysis = 2+ blood, 3+ protein - Renal ultrasound = "no hydronephrosis or suspicious renal mass. Significant increase in cortical echogenicity indicating medical renal disease." - Renal artery Doppler = "no sonographic evidence of renal arterial stenosis. Increased renal echotexture consistent with parenchymal disease." - Monitor creatinine and urine output - Renally dose medications - Case management consulted for assistance with finding a dialysis chair # Hypertensive Emergency # Non-ST Segment Elevation Myocardial Infarction due to above # Moderate Pulmonary Hypertension - Consulted Cardiology - recommendations appreciated - EKG reportedly without STEMI criteria - Troponin trend: 307.5 -> 287.9 -> 242.8 - Transthoracic echocardiogram = "1. normal left ventricular ejection fraction 55-60% with normal wall motion. 2. moderate diastolic dysfunction. 3. moderate tricuspid regurgitation. 4. mild aortic and mitral regurgitation. 5. moderate pulmonary hypertension with right ventricular systolic pressure of 50-55 mmHg. " - Continue home aspirin, atorvastatin, metoprolol - PRN hydralazine for SBP > 160 mmHg # Hypokalemia - Replace as needed Doing well. No acute concerns. Waiting for dialysis chair. Unlikely to happen over the weekend. Enzo Carty M.D.
--- NOTE | 2022-08-15 14:06 | P.PN ---
Subjective Date of Service: 08/15/22 Chief Complaint: Acute renal failure, NSTEMI Subjective: Other (No c/o JEAN or SOB.) Physical Examination - Vital Signs Temperature: 98.8 F Blood Pressure: 159/107 Pulse: 97 Respirations: 16 Pulse Ox (%): 94 - Physical Exam General: Alert, In no apparent distress HEENT: Atraumatic, Normocephalic Neck: Supple Respiratory: Other (Symmetric chest expansion) Cardiovascular: No rubs, No murmurs Gastrointestinal: Soft and benign Musculoskeletal: No clubbing Integumentary: No warmth Neurological: Normal speech, Normal tone Urinary: Other (NO bladder distention) External genitalia: Deferred Rectal: Deferred Assessment And Plan - Plan # JUANITO on CKD vs progressive CDK V/ESRD HD started on 08/11 No acute indication for HD today. Cont HD MWF. Renal diet US: no hydronephrosis but w/ asymmetric kidneys. Doppler showed no e/o JAVIER but sensitivity not very high for JAVIER w/ doppler Cont lasix 40 mg po bid Do kidney biopsy on Wednesday if BP controlled # Accelerated Htn Hx of resistant Htn. Has Htn since 18 y/o. DDx include Conn's syndrome & JAVIER, aggravated by renal failure/CKD. Pheochromocytoma less likely. BNP remains above goal F/u PA/PRA, plasma fractionated metanephrines + catecholamines Given asymmetric kidneys, hypokalemia, & though neg renal doppler US for JAVIER, unable to r/o JAVIER at this point. Hold off on CTA renal. Cont Lisinopril 40 mg po daily. Given premature Htn & -[place] descent, Conn's possible. Increase dannie to 100 mg po bid Switch Metroprolol to Carvedilol 12.5 mg po daily Cont Nifedipine same dose # Hypokalemia HD & Lisinopril as above # Vit D deficiency Started on D3 5T IU po daily # Secondary hyperPTH iPTH sig elevated at 306. 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
[2022-08-15 14:12] LABS: HIV AG/AB 4TH GEN Non-reactive (Non-reactive)
[2022-08-15] MEDS ORDERED: SPIRONOLACTONE 25 MG TABLET PO ONE (15:00)
[2022-08-15] MEDS: HYDROCODONE/APAP 5/325 MG TAB PO PRN (19:21)
[2022-08-15] MEDS: LABETALOL 20 MG/4ML SYRINGE IV PRN (21:21)
[2022-08-15] MEDS: ATORVASTATIN 40 MG TAB PO SCH (21:22)
[2022-08-16 04:59] LABS: Potassium 3.1 mmol/L (3.5-5.1)
[2022-08-16 05:44] LABS: Albumin, (SPE) 3.2 g/dL (3.8-4.8); Alpha-1-Globulins 0.5 g/dL (0.2-0.3); Alpha-2-Globulins 0.5 g/dL (0.5-0.9); Gamma Globulins 1.2 g/dL (0.8-1.7); INTERPRETATION REPORT
[2022-08-16] MEDS: carvediloL 12.5 MG TAB PO SCH ×2 (06:38→17:16)
[2022-08-16] MEDS ORDERED: carvediloL 12.5 MG TAB PO STA (07:50)
[2022-08-16] MEDS: lisinopriL 20 MG TAB PO SCH (07:52)
[2022-08-16] MEDS: ASPIRIN EC 81 MG TAB PO SCH (07:52)
[2022-08-16] MEDS: NIFEDIPINE XL 60 MG TABLET PO SCH (07:52)
[2022-08-16] MEDS: VITAMIN D 5,000 UNIT CAP PO SCH (07:53)
[2022-08-16] MEDS: SPIRONOLACTONE 25 MG TABLET PO SCH ×2 (07:53→22:02)
[2022-08-16] MEDS: FUROSEMIDE 40 MG TABLET PO SCH ×2 (07:53→16:10)
[2022-08-16] MEDS: CALCITROL 0.25 MCG CAP PO SCH (07:53)
--- NOTE | 2022-08-16 08:08 | P.PN ---
Subjective Date of Service: 08/16/22 Chief Complaint: Acute renal failure, NSTEMI Subjective: No new changes Physical Examination - Vital Signs Temperature: 98.8 F Blood Pressure: 159/107 Pulse: 97 Respirations: 16 Pulse Ox (%): 94 - Physical Exam General: In no apparent distress HEENT: Atraumatic, Normocephalic Neck: Supple Respiratory: Clear to auscultation bilaterally Cardiovascular: No rubs, No murmurs Musculoskeletal: No clubbing Integumentary: No warmth Neurological: Normal speech, Normal tone Urinary: Other (No bladder distention) External genitalia: Deferred Rectal: Deferred Assessment And Plan - Plan # JUANITO on CKD vs progressive CDK V/ESRD HD started on 08/11 No acute indication for HD today. Cont HD MWF. Renal diet US: no hydronephrosis but w/ asymmetric kidneys. Doppler showed no e/o JAVIER but sensitivity not very high for JAVIER w/ doppler Cont lasix 40 mg po bid Do kidney biopsy on Wednesday or Wednesday if BP controlled, to determine of true ESRD or not # Accelerated Htn Hx of resistant Htn. Has Htn since 18 y/o. DDx include Conn's syndrome & JAVIER, aggravated by renal failure/CKD. Pheochromocytoma less likely. BNP remains above goal F/u PA/PRA, plasma fractionated metanephrines + catecholamines Given asymmetric kidneys, hypokalemia, & though neg renal doppler US for JAVIER, unable to r/o JAVIER at this point. Hold off on CTA renal. Cont Lisinopril 40 mg po daily. Given premature Htn & -[place] descent, Conn's possible. Increase dannie to 100 mg po bid Increase Carvedilol to 25 mg po bid Cont Nifedipine XL same dose increase to bid if needed # Hypokalemia HD & Lisinopril as above # Vit D deficiency Started on D3 5T IU po daily # Secondary hyperPTH iPTH sig elevated at 306. 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
--- NOTE | 2022-08-16 09:14 | P.PN ---
Date of Service: 08/16/22 Subjective No acute events overnight. She is sitting up comfortably eating breakfast. She endorses no concerns today. Disposition is pending placement for dialysis chair. Unlikely to happen over the weekend. Review of Systems 10-point ROS is otherwise unremarkable Physical Examination - Vital Signs reviewed - Physical Exam General: Alert, In no apparent distress, Oriented x3 HEENT: Atraumatic, Sclerae nonicteric Neck: Supple, JVD not distended, RIJ Tesio catheter in place Respiratory: Clear to auscultation bilaterally, Normal air movement Cardiovascular: No edema, Regular rate/rhythm, Normal S1 S2, No gallops, No rubs, No murmurs Gastrointestinal: Normal bowel sounds, Soft and benign, Non-distended, No tenderness, No rebound, No guarding Musculoskeletal: No clubbing Integumentary: No rashes Neurological: Normal speech, Cranial nerves 3-12 intact, Normal affect Assessment And Plan - Assessment # Suspected Chronic Kidney Disease Stage V now with progression to End-Stage Renal Disease on Intermittent Hemodialysis # Suspect Anemia of Chronic Kidney Disease # Hypertensive Emergency # Non-ST Segment Elevation Myocardial Infarction due to above # Moderate Pulmonary Hypertension # Hypokalemia - Plan - Nephrology consulted - recommendations appreciated - S/P RIJ tunneled Tesio catheter placement on 08/11/2022 - Creatinine = 14.1 -> 14.7 -> 14.8 (baseline creatinine unknown) - Urinalysis = 2+ blood, 3+ protein - Renal ultrasound = "no hydronephrosis or suspicious renal mass. Significant increase in cortical echogenicity indicating medical renal disease." - Renal artery Doppler = "no sonographic evidence of renal arterial stenosis. Increased renal echotexture consistent with parenchymal disease." - Monitor creatinine and urine output - Renally dose medications - Case management consulted for assistance with finding a dialysis chair - Consulted Cardiology - recommendations appreciated - EKG reportedly without STEMI criteria - Troponin trend: 307.5 -> 287.9 -> 242.8 - Transthoracic echocardiogram = "1. normal left ventricular ejection fraction 55-60% with normal wall motion. 2. moderate diastolic dysfunction. 3. moderate tricuspid regurgitation. 4. mild aortic and mitral regurgitation. 5. moderate pulmonary hypertension with right ventricular systolic pressure of 50-55 mmHg. " - Continue home aspirin, atorvastatin, metoprolol - PRN hydralazine for SBP > 160 mmHg - Waiting for dialysis chair
[2022-08-16] MEDS: SOD FERRIC GLUC COMPLX/SUCROSE 125 MG in NA CHLORIDE 0.9% 100 ML IV SCH (09:28)
[2022-08-16] MEDS: LABETALOL 20 MG/4ML SYRINGE IV PRN (16:09)
[2022-08-16] MEDS: ATORVASTATIN 40 MG TAB PO SCH (22:02)
[2022-08-17 00:52] LABS: UR SODIUM 112 mmol/L (27-287)
[2022-08-17 00:53] LABS: UR POTASSIUM < 6.0 mmol/L (20-40)
[2022-08-17] MEDS: carvediloL 12.5 MG TAB PO SCH ×2 (05:30→17:12)
[2022-08-17] MEDS: SPIRONOLACTONE 25 MG TABLET PO SCH ×2 (08:37→21:45)
[2022-08-17] MEDS: lisinopriL 20 MG TAB PO SCH (08:37)
[2022-08-17] MEDS: ASPIRIN EC 81 MG TAB PO SCH (08:38)
[2022-08-17] MEDS: NIFEDIPINE XL 60 MG TABLET PO SCH (08:38)
[2022-08-17] MEDS: FUROSEMIDE 40 MG TABLET PO SCH ×2 (08:38→17:12)
[2022-08-17] MEDS: VITAMIN D 5,000 UNIT CAP PO SCH (08:38)
[2022-08-17] MEDS: CALCITROL 0.25 MCG CAP PO SCH (08:38)
[2022-08-17] MEDS: SOD FERRIC GLUC COMPLX/SUCROSE 125 MG in NA CHLORIDE 0.9% 100 ML IV SCH (09:12)
[2022-08-17 10:19] VITALS: O2SAT 96
[2022-08-17] MEDS: LABETALOL 20 MG/4ML SYRINGE IV PRN (12:15)
[2022-08-17] MEDS: EPOETIN 4,000 UNIT/ML VIAL IV SCH (16:30)
[2022-08-17] MEDS: ATORVASTATIN 40 MG TAB PO SCH (21:45)
[2022-08-17 23:33] LABS: Beta Globulin 24 HR Urine 15 %; Gamma Globulin, 24hr Urine 19 %; Interpretation: REPORT; Protein/Crea Ratio in g 3536 mg/g creat (<150); Protein/Crea Ratio in mg 3.536 (<0.150); Urine Alpha-2-Globulins, 24 Hr 9 %; Urine PEP Abn Protein Band1 REPORT; Urine Total Volume 24 Hours 950 mL
--- NOTE | 2022-08-18 01:27 | PN ---
Date of Progress Note: 08/17/2022 Chief Complaint: Acute kidney injury on chronic kidney disease, progressive chronic kidney disease, currently end-stage renal disease, dialysis dependent. Renal ultrasound did not show hydronephrosis. Doppler showed no evidence of renal artery stenosis. Review of Systems: Patient denies fever or chills. Physical Examination: Lungs: Clear to auscultation bilaterally. Heart: S1, S2. Abdomen: Soft. Extremities: No edema. Impression And Plan: 1. Acute kidney injury on chronic kidney disease. Progressive chronic kidney disease secondary to uncontrolled hypertension, likely patient has hypertensive kidney disease. Patient will have renal biopsy when blood pressure is well controlled. Continue low-sodium diet. Advance blood pressure medication. The patient had a Doppler done, which did not show evidence of renal artery stenosis, sensitivity is not very high for renal artery stenosis with Doppler. 2. Accelerated hypertension. Differential diagnosis may include hyperaldosteronism. Pheochromocytoma is less likely. The patient had workup started for secondary hypertension. Plasma fractionated metanephrine and catecholamines are pending. The patient will continue dialysis 3 x per week. Renal function has not improved, there is no evidence of renal function recovery, patient has end-stage renal disease and she is dialysis dependent. Patient needs hemodialysis 3 per week for end stage renal disease. For blood pressure control, patient will continue lisinopril 40 mg a day. Spironolactone was also increased. Monitor electrolytes closely. Patient will continue carvedilol 25 mg twice a day and nifedipine XL. Dose may need to be adjusted for adequate blood pressure control. 3. Hypokalemia. Continue replacement. 4. Vitamin D deficiency. The patient was started on vitamin D. 5. Hyperparathyroidism. Calcitriol was started. 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 6. Anemia of chronic disease. Continue IV iron and MUNA. EB/MODL Voice ID: [id number] Report ID: [id number] [facility]
[2022-08-18] MEDS: LABETALOL 20 MG/4ML SYRINGE IV PRN (05:15)
[2022-08-18] MEDS: carvediloL 12.5 MG TAB PO SCH ×2 (06:46→17:42)
[2022-08-18] MEDS: NIFEDIPINE XL 60 MG TABLET PO SCH (09:14)
[2022-08-18] MEDS: SPIRONOLACTONE 25 MG TABLET PO SCH ×2 (09:14→20:50)
[2022-08-18] MEDS: ASPIRIN EC 81 MG TAB PO SCH (09:14)
[2022-08-18] MEDS: VITAMIN D 5,000 UNIT CAP PO SCH (09:15)
[2022-08-18] MEDS: FUROSEMIDE 40 MG TABLET PO SCH ×2 (09:15→16:28)
[2022-08-18] MEDS: lisinopriL 20 MG TAB PO SCH (09:15)
[2022-08-18] MEDS: SOD FERRIC GLUC COMPLX/SUCROSE 125 MG in NA CHLORIDE 0.9% 100 ML IV SCH (09:58)
[2022-08-18] MEDS: CALCITROL 0.25 MCG CAP PO SCH (09:59)
[2022-08-18] MEDS ORDERED: HYDRALAZINE HCL 25 MG TABLET PO SCH (14:00)
[2022-08-18] MEDS ORDERED: CLONIDINE 0.1 MG/PATCH TD SCH (15:00)
--- NOTE | 2022-08-18 19:27 | PN ---
Date of Progress Note: 08/18/2022 Subjective: The patient was admitted with acute kidney injury, unknown etiology, possibly secondary to urgent hypertension, possibly on chronic kidney disease. The patient nonoliguric. The patient lazar d to be initiated on dialysis, tolerating the dialysis very well. The patient still waiting for melina r placement. Physical Examination: Vital Signs: When I saw the patient blood pressure was 174/120, pulse of 89, and afebrile. Chest: Clear to auscultation. Heart: S1, S2 regular. Abdomen: Soft, nontender. Extremities: No edema. Neurologic: Alert. No focality. Laboratory Data: Hemoglobin 7.3. Sodium 137, potassium 3.1, bicarb 30, BUN 20, creatinine 9.7, and calcium 8.7. Current Medications: Aspirin, Epogen, atorvastatin, carvedilol 25 b.i.d., hydralazine 25 t.i.d., nif edipine 60, spironolactone 100 b.i.d., and Lasix. Assessment And Plan: 1.Acute kidney injury. Given the finding on the ultrasound and the PTH, no much improvement and the history of chronic hypertension since age of 18 with poorly controlled, mostly this is end-stage carrie al disease. Anyhow with the young age, patient deserved to have kidney biopsy, but we will treat the patient as end-stage renal disease for the time being and we will continue dialysis Wednesday, , and Wednesday and we will follow up the patient. I am going to be waiting for serology for the patie nt and waiting for placement. The patient is going to need also kidney biopsy. 2.Hypertension, not controlled. I am going to go ahead and increase her hydralazine to [address] We will place the patient on clonidine patch 0.1 and we will follow up response. 3.Secondary hypothyroid. Continue carvedilol. 4.Anemia of chronic kidney disease. Continue current treatment. Continue MUNA. 5.Hypertension, possible secondary hypertension. Workup is still pending. Aldosterone pending. Pl asma renin activity pending. The patient was started on spironolactone. I again added clonidine. MA/MODL Voice ID: [id number] Report ID: [id number]
[2022-08-18] MEDS: HYDRALAZINE HCL 25 MG TABLET PO SCH (20:51)
[2022-08-18] MEDS: ATORVASTATIN 40 MG TAB PO SCH (20:51)
[2022-08-19] MEDS: carvediloL 12.5 MG TAB PO SCH (06:03)
[2022-08-19 07:54] VITALS: TEMP 97.3
[2022-08-19] MEDS: NIFEDIPINE XL 60 MG TABLET PO SCH (09:00)
[2022-08-19] MEDS: SPIRONOLACTONE 25 MG TABLET PO SCH (09:00)
[2022-08-19] MEDS: HYDRALAZINE HCL 25 MG TABLET PO SCH ×2 (09:00→13:43)
[2022-08-19] MEDS: lisinopriL 20 MG TAB PO SCH (09:00)
[2022-08-19] MEDS: FUROSEMIDE 40 MG TABLET PO SCH (09:00)
--- NOTE | 2022-08-19 09:59 | P.PN ---
Date of Service: 08/17/22 Subjective She continues to do well with no new complaints. Review of Systems 10-point ROS is otherwise unremarkable Physical Examination - Vital Signs reviewed - Physical Exam General: Alert, In no apparent distress, Oriented x3 Neck: RIJ Tesio catheter in place Respiratory: Clear to auscultation bilaterally Cardiovascular: Regular rate/rhythm, Normal S1 S2, No murmurs Gastrointestinal: Normal bowel sounds, Soft and benign, Non-distended, No tenderness Neurological: Cranial nerves 3-12 intact, Normal affect -Diagnostic studies - Renal ultrasound = "no hydronephrosis or suspicious renal mass. Significant increase in cortical echogenicity indicating medical renal disease." - Renal artery Doppler = "no sonographic evidence of renal arterial stenosis. Increased renal echotexture consistent with parenchymal disease." - Transthoracic echocardiogram = "1. normal left ventricular ejection fraction 55-60% with normal wall motion. 2. moderate diastolic dysfunction. 3. moderate tricuspid regurgitation. 4. mild aortic and mitral regurgitation. 5. moderate pulmonary hypertension with right ventricular systolic pressure of 50-55 mmHg. " Assessment And Plan - Assessment # Suspected Chronic Kidney Disease Stage V now with progression to End-Stage Renal Disease on Intermittent Hemodialysis # Suspect Anemia of Chronic Kidney Disease # Hypertensive Emergency # Non-ST Segment Elevation Myocardial Infarction due to above # Moderate Pulmonary Hypertension # Hypokalemia - Plan - Nephrology consulted; patient will discharge on hemodialysis. Biopsy pending. - S/P RIJ tunneled Tesio catheter placement on 08/11/2022 - Case management consulted for assistance with finding a dialysis chair; pending acceptance - Consulted Cardiology - recommendations appreciated - Continue home aspirin, atorvastatin, metoprolol
--- NOTE | 2022-08-19 10:00 | P.PN ---
Date of Service: 08/18/22 Subjective Patient is waiting for acceptance. Continues to do well. Biopsy was canceled. Review of Systems 10-point ROS is otherwise unremarkable Physical Examination - Vital Signs reviewed - Physical Exam General: Alert, In no apparent distress, Oriented x3 Neck: RIJ Tesio catheter in place Respiratory: Clear to auscultation bilaterally Cardiovascular: Regular rate/rhythm, Normal S1 S2, No murmurs Gastrointestinal: Normal bowel sounds, Soft and benign, Non-distended, No tenderness Neurological: No focal deficits -Diagnostic studies - Renal ultrasound = "no hydronephrosis or suspicious renal mass. Significant increase in cortical echogenicity indicating medical renal disease." - Renal artery Doppler = "no sonographic evidence of renal arterial stenosis. Increased renal echotexture consistent with parenchymal disease." - Transthoracic echocardiogram = "1. normal left ventricular ejection fraction 55-60% with normal wall motion. 2. moderate diastolic dysfunction. 3. moderate tricuspid regurgitation. 4. mild aortic and mitral regurgitation. 5. moderate pulmonary hypertension with right ventricular systolic pressure of 50-55 mmHg. " Assessment And Plan - Assessment # Suspected Chronic Kidney Disease Stage V now with progression to End-Stage Renal Disease on Intermittent Hemodialysis # Suspect Anemia of Chronic Kidney Disease # Hypertensive Emergency # Non-ST Segment Elevation Myocardial Infarction due to above # Moderate Pulmonary Hypertension # Hypokalemia - Plan - Nephrology consulted; patient will discharge on hemodialysis. Biopsy pending. - S/P RIJ tunneled Tesio catheter placement on 08/11/2022 - Case management consulted for assistance with finding a dialysis chair; pending acceptance - Consulted Cardiology - recommendations appreciated - Continue home aspirin, atorvastatin, metoprolol
[2022-08-19] MEDS: EPOETIN 4,000 UNIT/ML VIAL IV SCH (12:30)
[2022-08-19 13:32] VITALS: BP 126/85
[2022-08-19] MEDS: CALCITROL 0.25 MCG CAP PO SCH (13:43)
[2022-08-19] MEDS: VITAMIN D 5,000 UNIT CAP PO SCH (13:43)
[2022-08-19] MEDS: ASPIRIN EC 81 MG TAB PO SCH (13:44)
[2022-08-19 15:53] LABS: Anti-Cardiolipin IgA Antibody 2.1 APL-U/mL (<20.0); Phosphatidylser & Prothrom IgG <9 U (<=30); Phosphatidylser & Prothrom IgM <9 U (<=30)
[2022-08-19 15:55] LABS: PHOSPHATDYLSERINE AB IGA ND; PHOSPHATDYLSERINE AB IGG ND; PHOSPHATDYLSERINE AB IGM ND
--- NOTE | 2022-08-19 16:54 | PN ---
Date of Progress Note: 08/19/2022 Subjective: The patient was admitted with urgent hypertension and acute kidney injury. The patient was initiated on dialysis, tolerating the dialysis. The patient seen on dialysis today. Yesterday, we started the patient on clonidine patch. Blood pressure started responding better, down to 130. Physical Examination: Vital Signs: When I saw the patient; blood pressure 159/96. Chest: Clear to auscultation. Heart: S1, S2. Regular. Abdomen: Soft, nontender. Extremities: No edema. Neurologic: Alert. No focality. No tremor. Laboratory Data: WBC 10.6, H and H 7.3/22.3. Sodium 137, potassium 3.1, bicarb 30, BUN 20, creatini ne 9.7, calcium 8.7. Current Medications: The patient on include; 1.Epogen. 2.Atorvastatin. 3.Carvedilol 25 b.i.d. 4.Clonidine patch. 5.Lisinopril 40 daily. 6.Hydralazine 50 t.i.d. 7.Nifedipine 60 daily. 8.Spironolactone 100 b.i.d. 9.Calcitriol 0.25. 10.Ergocalciferol. Assessment And Plan: 1.Acute kidney injury mostly on chronic kidney disease given the age and still pending all serology. The patient is going to stay for tomorrow. We will proceed with kidney biopsy given that the blood pressure better controlled. The patient is going to be discharged. We will follow up as outpatient for the biopsy. Awaiting for chair placement. 2.Hypertension, better controlled. Continue current regimen. We will follow up secondary hypertens ion workup. 3.Anemia of chronic kidney disease. Continue MUNA. 4.Hypokalemia. The patient is going to be dialyzed on high potassium bath. 5.Hyponatremia, going to be corrected with dialysis. MA/MODL Voice ID: [id number] Report ID: [id number]
== END 2022-08-19 16:31 | disposition home or self-care (01) | DRG 673 ==
LOC: ER 23:54 → ERHOLD 08-10 02:21 → 2ND 08-10 06:34
PROVIDERS: ADMIT Internal Medicine; ATTEND Hospitalist
PROC: 02HV33Z Insertion of Infusion Device into Superior Vena Cava, Percutaneous Approach (ICD-10-PCS; 2022-08-11)
PROC: 5A1D70Z Performance of Urinary Filtration, Intermittent, Less than 6 Hours Per Day (ICD-10-PCS; 2022-08-11)
PROC: 0JH63XZ Insertion of Tunneled Vascular Access Device into Chest Subcutaneous Tissue and Fascia, Percutaneous Approach (ICD-10-PCS; principal; 2022-08-11 11:30)
DX: N17.9 Acute kidney failure, unspecified (principal); I21.4 Non-ST elevation (NSTEMI) myocardial infarction; I16.1 Hypertensive emergency; E87.1 Hypo-osmolality and hyponatremia; I13.11 Hypertensive heart and chronic kidney disease without heart failure, with stage 5 chronic kidney disease, or end stage renal disease; N18.6 End stage renal disease; E87.6 Hypokalemia; D63.1 Anemia in chronic kidney disease; D69.6 Thrombocytopenia, unspecified; I08.3 Combined rheumatic disorders of mitral, aortic and tricuspid valves; I27.20 Pulmonary hypertension, unspecified; E55.9 Vitamin D deficiency, unspecified; N25.81 Secondary hyperparathyroidism of renal origin; D63.8 Anemia in other chronic diseases classified elsewhere; R73.9 Hyperglycemia, unspecified; F17.210 Nicotine dependence, cigarettes, uncomplicated; Z99.2 Dependence on renal dialysis; Z79.82 Long term (current) use of aspirin; Z79.899 Other long term (current) drug therapy
CPT/HCPCS: 36415; 51702; 71045; 74176; 76000; 76377; 76770; 80048; 80053; 80061; 81003; 81015; 81025; 82043; 82088; 82306; 82384; 82435; 82550; 82570; 82728; 83036; 83540; 83615; 83735; 83835; 83880; 83935; 83970; 84100; 84132; 84156; 84165; 84166; 84244; 84300; 84439; 84443; 84466; 84484; 84550; 85025; 85610; 86021; 86038; 86060; 86160; 86225; 86235; 86317; 86334; 86704; 86705; 86706; 86850; 86900; 86901; 87340; 87389; 90935; 93005; 93306; 93975; 96365; 96366; 96368; 99285; A4216; C1752; J0360; J0690; J1644; J2001; J2150; J2250; J2405; J2597; J2704; J2916; J3010; J3480; J7040; J7120; Q5105